=== PATIENT | male | born 1970 | race Caucasian/White ===

== ENCOUNTER 2016-11-08 18:54 | Inpatient (IN) | payer MEDICARE ==
--- NOTE | ~2016-11-08 | XA166 ---
[facility] A Service of [facility] & [facility] RADIOLOGY TEXT RESULTS PATIENT: LOUANN GOLDEN LOCATION: [facility] 576-01 : 70 UNIT #: [id number] AGE: [address]: Srinivasan Sidhu MD SEX: M ORDER DR: [id number] [facility] [address] [place], [place] [address] [id number] I MR#: [id number] Acc #: [id number] NAME: LOUANN GOLDEN : 1970 SEX: M STUDY DATE/TIME: 11/22/2016 14:57 UNIT: [facility] ROOM: [facility] STUDY DESCRIPTION: XA PICC Line Placement WO Port Attending Physician: Srinivasan Sidhu M.D. Ordering Physician: Srinivasan Sidhu M.D. Primary Care Physician: Primary Care Physician No MEDICAL IMAGING REPORT This report is preliminary unless electronic signature is present EXAM Right-sided PICC line placement INDICATION Need for IV access. The patient with bilateral pulmonary infiltrates diagnosed on November 13, 2016. PRE-PROCEDURE The procedure was explained to the patient and/or patient assisted sales representative including risks, benefits, potential complications and potential for alternative forms of treatment. Informed consent was obtained, and prior to initiating the procedure a formal timeout procedure was performed. PROCEDURE Using full standard sterile barrier technique, including caps, gowns, gloves, masks, as well as sterile skin preparation and standard sterile draping, the right arm was prepped and draped in the usual fashion, and real-time sterile ultrasound guidance was used to localize an arm vein and to confirm vessel patency. A hard copy ultrasound image was recorded. After local anesthesia with 1% Xylocaine, the vein was punctured using real-time sterile ultrasound guidance, and an 0.018 guidewire was advanced into the superior vena cava, using fluoroscopic guidance. A 4 Barbadian single-lumen PICC was then measured and deployed with the tip positioned in the superior vena cava. The position of the line was documented with a radiographic image. The line was secured in place with an adhesive dressing and an antibiotic patch was applied. Total fluoro time was 0.1 minutes. AK was 1 mGy. IMPRESSION Successful placement of a 4 Barbadian single-lumen PowerPICC via the right arm under ultrasound and fluoroscopic guidance. The tip of the PICC is in good position in the superior vena cava. [facility] A Service of [facility] & [facility] RADIOLOGY TEXT RESULTS PATIENT: LOUANN GOLDEN LOCATION: [facility] 576-01 : 70 UNIT #: [id number] AGE: [address]: Srinivasan Sidhu MD SEX: M ORDER DR: Dictated by... Johanna Chanel M.D. THIS IS AN ELECTRONICALLY VERIFIED REPORT Johanna Chanel M.D. at 11/23/2016 1:15 PM KRISTIAN/vince TD: 11/23/2016 08:31 JOB #: [id number] MEDICAL IMAGING REPORT Page 1 of 1 COPY
--- NOTE | ~2016-11-08 | CR72 ---
[facility] A Service of [facility] RADIOLOGY TEXT RESULTS PATIENT: LOUANN GOLDEN LOCATION: [address] : [birth year] UNIT #: [id number] AGE: [address]: Srinivasan Sidhu MD SEX: M ORDER DR: [id number] [place] [address] [place], [place] [address] [id number] I MR#: [id number] Acc #: [id number] NAME: LOUANN GOLDEN : 1970 SEX: M STUDY DATE/TIME: 11/13/2016 18:02 UNIT: [facility] ROOM: [facility] STUDY DESCRIPTION: CR Chest Single View Portable Attending Physician: Srinivasan Sidhu M.D. Ordering Physician: Jaime Rodgers M.D. Primary Care Physician: Primary Care Physician No MEDICAL IMAGING REPORT This report is preliminary unless electronic signature is present EXAM Portable chest, 11/13/16 HISTORY ET tube placement and central line placement COMPARISON STUDIES Earlier today. FINDINGS Right IJ central venous catheter tip projects over the SVC. Endotracheal tube tip in satisfactory position above the troy. The Dobbhoff tube tip projects over the stomach. No evidence for pneumothorax. Stable diffuse bilateral pulmonary infiltrates. IMPRESSION Right IJ central venous catheter tip projects over the mid SVC. Endotracheal tube tip in satisfactory position. No evidence for pneumothorax. Dictated by... Mat Lombardi M.D. THIS IS AN ELECTRONICALLY VERIFIED REPORT Mat Lombardi M.D. at 11/15/2016 7:26 AM ARS/catrachita TD: 11/14/2016 00:12 [facility] A Service [facility] RADIOLOGY TEXT RESULTS PATIENT: LOUANN GOLDEN LOCATION: [address] : [birth year] UNIT #: [id number] AGE: [address]: Srinivasan Sidhu MD SEX: M ORDER DR: JOB #: [id number] MEDICAL IMAGING REPORT Page 1 of 1 COPY
--- NOTE | ~2016-11-08 | EKG ---
PATIENT: LOUANN GOLDEN UNIT #: [id number] Ventricular Rate: 89 BPM Atrial Rate: 89 BPM P-R Interval: 144 ms QRS Duration: 76 ms Q-T Interval: 332 ms QTC Calculation(Bezet): 403 ms P [place]: 71 degrees Calculated R [place]: 56 degrees Calculated T [place]: 125 degrees Diagnosis Line: Normal sinus rhythm Diagnosis Line: Low voltage QRS Diagnosis Line: Septal infarct , age undetermined Diagnosis Line: Abnormal ECG Diagnosis Line: When compared with ECG of 08-NOV-2016 19:51, Diagnosis Line: Non-specific change in ST segment in Inferior Diagnosis Line: leads Diagnosis Line: Nonspecific T wave abnormality now evident in Diagnosis Line: Inferior leads Diagnosis Line: Nonspecific T wave abnormality, worse in Lateral Diagnosis Line: leads Diagnosis Line: QT has shortened Diagnosis Line: Confirmed by MIKE RAMIREZ MD ([id number]) on Diagnosis Line: 11/14/2016 1:29:32 PM INTERPRETING MD: JAMES MCKINNON
--- NOTE | ~2016-11-08 | CR127 ---
[facility] A Service of [facility] RADIOLOGY TEXT RESULTS PATIENT: LOUANN GOLDEN LOCATION: [place] [address] : 70 UNIT #: [id number] AGE: [address]: Kathi Nicholas MD SEX: M ORDER DR: [id number] [facility] [address] [facility]. [place], [place] [address] [id number] I MR#: [id number] Acc #: [id number] NAME: LOUANN GOLDEN : 1970 SEX: M STUDY DATE/TIME: 11/08/2016 20:45 UNIT: [facility] ROOM: [id number] STUDY DESCRIPTION: CR Foot Complete Min 3 View Rt Attending Physician: Kathi Nicholas M.D. Ordering Physician: Sj Arciniega M.D. Primary Care Physician: Primary Care Physician No MEDICAL IMAGING REPORT This report is preliminary unless electronic signature is present EXAM Right foot 3 views HISTORY Foot pain and redness for 8 months. Chronic wound on plantar foot. FINDINGS 3 views of the right foot demonstrate fairly extensive soft tissue gas along the lateral plantar margin of the mid and forefoot extending into the fourth and fifth digits, and soft tissue wound over the lateral margin of the forefoot at the level of the fifth MTP joint. Generalized demineralization. Mild degenerative changes at the first MTP joint. No bone destruction or fracture is identified. Soft tissue swelling over the dorsum of the foot. IMPRESSION 1. Fairly extensive soft tissue gas along the plantar margin of the lateral mid and forefoot and extending into the fourth and fifth digits suggesting gas-producing soft tissue infection. There is also a soft tissue defect over the lateral margin of the fifth MTP joint. 2. No definite bone destruction or fracture. Dictated by... Tomy Rush M.D. THIS IS AN ELECTRONICALLY VERIFIED REPORT Tomy Rush M.D. at 11/08/2016 11:32 PM NIKI/darwin TD: 11/08/2016 22:33 JOB #: [id number] [facility] A Service of [facility] & [facility] RADIOLOGY TEXT RESULTS PATIENT: LOUANN GOLDEN LOCATION: [facility] 477-01 : 70 UNIT #: [id number] AGE: [address]: Kathi Nicholas MD SEX: M ORDER DR: MEDICAL IMAGING REPORT Page 1 of 1 COPY
--- NOTE | ~2016-11-08 | CR72 ---
[facility] A Service of [facility] & [facility] RADIOLOGY TEXT RESULTS PATIENT: LOUANN GOLDEN LOCATION: [address] : [birth year] UNIT #: [id number] AGE: [address]: Srinivasan Sidhu MD SEX: M ORDER DR: [id number] [facility] [address] [facility] [facility] [place], [place] [address] [id number] I MR#: [id number] Acc #: [id number] NAME: LOUANN GOLDEN : 1970 SEX: M STUDY DATE/TIME: 11/15/2016 5:08 UNIT: [facility] ROOM: [facility] STUDY DESCRIPTION: CR Chest Single View Portable Attending Physician: Srinivasan Sidhu M.D. Ordering Physician: Pito Varghese M.D. Primary Care Physician: Primary Care Physician No MEDICAL IMAGING REPORT This report is preliminary unless electronic signature is present EXAM Portable chest INDICATION Respiratory failure for 7 days. Follow up endotracheal tube. FINDINGS This portable view of the chest is compared with 11/13/2016. The Dobbhoff tube tip is in the lower esophagus and should be advanced. Bilateral infiltrates which are most dense on the right side and particularly in the right upper lobe are improved as compared with 11/13. The endotracheal tube and central venous catheter are in good position. I have discussed the results with the patient's nurse in the CCU. Dictated by... Juaquin Kowalski M.D. THIS IS AN ELECTRONICALLY VERIFIED REPORT Juaquin Kowalski M.D. at 11/15/2016 8:41 AM HINA/harvey TD: 11/15/2016 07:47 JOB #: [id number] MEDICAL IMAGING REPORT Page 1 of 1 COPY
--- NOTE | ~2016-11-08 | CO ---
Unit #: [id number] #: [id number] Patient: LOUANN GOLDEN [id number] [address] [address] [id number] I MR#: [id number] NAME: LOUANN GOLDEN ROOM: 576 Age: 46 Sex: M Admission Date: 11/08/2016 : 1970 Attending Physician: Srinivasan Sidhu M.D. Consultation Date: 11/21/2016 CONSULTATION REPORT REASON FOR CONSULTATION Followup. DISCUSSION Mr. Louann Joseph is a 46-year-old male, seen in room 576, bed 1 on 11/21/2016. The patient is keeping his head covered; mood, sad, depressed, flat, anxious. The patient was scheduled to have a surgery on his foot for gangrene. The patient had flat affect, sad, dysphoric, but denied any thoughts of harming self or others. Denied any psychotic symptom, but anxious and nervous. The patient's vital signs; temperature 98.0, pulse 86, respirations 18, blood pressure 142/65, oxygen saturation 95%. REVIEW OF SYSTEMS A complete review of systems is unremarkable except as mentioned above. MENTAL STATUS EXAMINATION Vital signs; please see above. General appearance; the patient dressed casually in hospital attire, withdrawn, isolative, flat, sad and dysphoric mood. Attention span and concentration, fair. Speech, slow. Oriented in self. Mood and affect, labile. Thought process, circumstantial. Thought content; guarded, but denied any thoughts of harming self or others or any hallucination. Recent and remote memory, fair. Language, fair. Fund of knowledge, fair to slightly impaired. Insight and judgment, fair to slightly impaired. DIAGNOSES Psychiatric: Major depressive disorder, recurrent, severe, F33.2; anxiety disorder, not otherwise specified, F40.01. ASSESSMENT AND PLAN 1. Supportive psychotherapy and psychoeducation provided to the patient. 2. Educated about benefits and side effects of medication and course and prognosis of illness. 3. Advised to continue with current combination of medication. If needed, consider further adjustment of medication. Please feel free to call if any question, telephone #[phone]. Dictated by... Tay Prince M.D. MATTHEW/ricky Unit #: [id number] #: [id number] Patient: LOUANN GOLDEN TD: 11/21/2016 19:43 JOB #: [id number] CONSULTATION REPORT Page 1 of 1 X Tay Prince MD CONSULTATION REPORT
--- NOTE | ~2016-11-08 | EKG ---
PATIENT: LOUANN GOLDEN UNIT #: [id number] Ventricular Rate: 94 BPM Atrial Rate: 94 BPM P-R Interval: 144 ms QRS Duration: 84 ms Q-T Interval: 366 ms QTC Calculation(Bezet): 457 ms P [place]: 80 degrees Calculated R [place]: 70 degrees Calculated T [place]: 91 degrees Diagnosis Line: Normal sinus rhythm Diagnosis Line: Normal ECG Diagnosis Line: No previous ECGs available Diagnosis Line: Confirmed by JOVANI GARY MD ([id number]) on 11/09/2016 Diagnosis Line: 10:03:20 AM INTERPRETING MD: COOKIE MCKINNON
--- NOTE | ~2016-11-08 | FU ---
[facility] DATE: 11/13/16 Patient: LOUANN GOLDEN Physician: PRINCESS Address: [address] [place] [address] [address] Room/Bed: [address] [place] [address], Zip: [place] [address] Admit Date: 11/08/16 Date of : [birth year] Height: 6 1 Weight: 134 61.23 NUTRITION MONITORING/FOLLOW-UP: Reason: Nutrition follow-up Admitting Dx: 45 y/o male admitted with R foot gangrene and uncontrolled DM Anthropometrics: Ht: 73", Wt: 61.2 kg (134 lbs), BMI: 17.7 (underweight), no updated weight available since 11/09 11/12 Labs: Na 133, K+ 3.3, Glucose 310, POC 44-210, A1C 14.7 (11/08), Phos 2.2 (11/08) Meds: Synthroid, Reglan, Levemir, Novolog (low SSI), bowel regimen, Phenergan/Zofran, NSIV @ 80 ml/hr GI: Last BM 11/13 (diarrhea), denies N/V at this time Skin: Pressure ulcers coccyx/buttocks (stage not documented) Scattered abrasions/wounds BUE/BLE Closed surgical incision R foot (s/p toe amputation) Intact abrasions ARIADNA arms Estimated Nutrition Needs: Increased needs due to wound healing requirements and low BMI Assessment: Chart reviewed, events noted. POD #4 open R foot transmetatarsal amputation, pain well controlled at this time. Patient is tolerating consistent carb diet with Glucerna ordered TID. For breakfast this AM consumed: 100% yogurt, 100% chocolate Glucerna, 50% banana. Patient states Glucerna is "ok," has no flavor preference, thinks he can only drink BID. States he has lost a total of approx. 130 lbs in the past 2 years due to diabetes, weight loss unintentional. Staff is questoning homeless status, social welfare administrator to confirm whether patient has home or not. Appears not well kept and thin with skin issues as noted above. Patient does have generalized weakness. RD educated on protein-rich foods and encouraged patient to continue Glucerna shakes and eat most of 3 meals per day, snacks as needed. Patient agreed. He also states he "usually" has insulin at home, however his diet/insulin compliance is questionable, A1C level 14.7. Patient is not wishing to receive diet education at this time, however I encouraged dietary compliance to help control blood sugars while meeting increased protein needs for wound healing. Patient agreed. See nutrition goals, diagnoses and recs as stated below. Of note, the patient will require further foot debridement and possible amputation. Rick eval placed. Dx: 1) Underweight r/t unknown etiology AEB BMI 17.7 - ACTIVE 2) Unintentional weight loss r/t "diabetes" AEB patient report of 49% body weight loss in 2 years (130 lb loss), 7 points malnutrition risk score, RD consult - ACTIVE [facility] DATE: 11/13/16 Patient: LOUANN GOLDEN Physician: PRINCESS Address: [address] [place] [address] 64 Room/Bed: [address] [place] [address], Zip: [place] [address] Admit Date: 11/08/16 Date of : [birth year] Height: 6 1 Weight: 134 61.23 3) Increased nutrient needs r/t wound healing requirements AEB dx, multiple open sores/abrasions, pressure ulcers, recent toe amputation - ACTIVE 4) Altered nutrition related lab values r/t uncontrolled DM AEB A1C 14.7, clinical dx - ACTIVE Intervention: High protein foods education Monitoring, Evaluation and Goals: 1. Tolerance of diet advancement - MET 2. Oral intake > 75% of meals - IN PROGRESS 3. Gradual weight gain - UNMEASURED SINCE 11/09 4. Improvement in labs (glucose < 200 mg dL, reduce A1C, lytes WNL) - IN PROGRESS 5. Promote wound healing - IN PROGRESS New nutrition goals: 1. Oral intake > 75% of meals. 2. 100% supplement intake BID. 3. Gradual weight gain. 4. Improvement in labs (glucose < 200 mg dL, reduce A1C, lytes WNL). 5. Promote wound healing. Monitor: Per protocol, criteria to determine if above goals met Recommendations: 1. Continue consistent carb diet, suggest 75g restriction. Appreciate staff to encourage adequate oral intake, especially of protein-rich foods such as meat, beans, dairy and Glucerna shakes. Patient was educated on his increased protein needs and appropriate protein-rich foods. Encourage patient to drink Glucerna shakes 2-3 times daily, he has no flavor preference. 2. Replace lytes prn. Hold bowel regimen with diarrhea. 3. Please obtain updated weight for monitoring purposes, as the patient is underweight. 4. Encourage insulin compliance prior to discharge, social welfare administrator to intervene as necessary. Optimze insulin regimen to promote adequate blood glucose control. 5. Provide wound care prn. Consider adding a daily MVI with minerals + 500 mg Vitamin C BID + 220 mg Zinc x 10 days to further promote wound healing. 6. Encourage smoking cessation. [facility] DATE: 11/13/16 Patient: LOUANN GOLDEN Physician: PRINCESS Address: [address] [place] [address] Room/Bed: [address] [place] [address], Zip: [place] [address] Admit Date: 11/08/16 Date of : [birth year] Height: 6 1 Weight: 134 61.23 Status: Moderate nutrition risk Respectfully, Audrey Estrada RD, LD [facility] cc: client file
--- NOTE | ~2016-11-08 | CT16 ---
[facility] A Service of [facility] & [facility] RADIOLOGY TEXT RESULTS PATIENT: LOUANN GOLDEN LOCATION: [address] : 70 UNIT #: [id number] AGE: [address]: Srinivasan Sidhu MD SEX: M ORDER DR: [id number] [facility] [address] [place], [place] [address] [id number] I MR#: [id number] Acc #: [id number] NAME: LOUANN GOLDEN : 1970 SEX: M STUDY DATE/TIME: 11/13/2016 13:47 UNIT: [facility] ROOM: [facility] STUDY DESCRIPTION: CT Angio Chest for PE Attending Physician: Srinivasan Sidhu M.D. Ordering Physician: Srinivasan Sidhu M.D. Primary Care Physician: Primary Care Physician No MEDICAL IMAGING REPORT This report is preliminary unless electronic signature is present EXAM CT angiogram of the chest for pulmonary embolism, 11/13/2016 13:47 hours HISTORY 46-year-old man with new onset shortness of air and decrease oxygen saturation levels with rapid heart response. Decreased blood sugar. COMPARISON Abnormal chest film 11/13/2016 at 12:56 [address] TE[address]QUE Dynamic helical CT angiographic images were obtained from the thoracic inlet through the adrenal glands. 3-D sagittal and coronal reconstructions were performed. Contrast was Isovue-370, 80 mL IV. Total exam DLP 802 mGy-cm. This CT exam was performed with one or more of the following radiation dose reduction techniques: automatic exposure control, adjustment of mA and/or kV according to patient size, and iterative reconstruction. FINDINGS Images through the thoracic inlet demonstrate no thyroid mass. There is excellent opacification of the pulmonary arteries which are normal in caliber. There are no filling defects to suggest the presence of pulmonary emboli. The aorta is also well opacified without dissection. The ascending aorta measures 3.5 cm consistent with mild ectasia. There is no significant pericardial fluid. The patient has moderate dependent bilateral pleural effusions and diffuse ascites in the abdomen. The lung window images are markedly abnormal similar to the earlier chest film with diffuse bilateral ground-glass and airspace change more confluent in the right upper lobe than left upper lobe with patchy involvement in the right middle lobe, lingula and both lower lobes. The findings favor the presence of an asymmetric edema although diffuse STS. [facility] A Service of [facility] & [facility] RADIOLOGY TEXT RESULTS PATIENT: LOUANN GOLDEN LOCATION: [address] : [birth year] UNIT #: [id number] AGE: [address]: Srinivasan Sidhu MD SEX: M ORDER DR: overwhelming pneumonia could have this appearance. The liver and spleen appear normal. There is diffuse upper abdominal ascites. No definite liver lesion. No adrenal lesion. The upper poles of the kidneys enhance normally. IMPRESSION 1. No evidence of pulmonary embolism. 2. Mild ectasia of the ascending aorta measuring 3.5 cm with no dissection. 3. There is diffuse airspace change in the right upper lobe and patchy ground-glass change and interstitial change in the left upper lobe, right middle lobe, lingula and patchy involvement of the lower lobes with moderate dependent bilateral effusions. These parenchymal changes favor the presence of asymmetric edema over multifocal pneumonia. 4. There are dependent moderate effusions with diffuse ascites seen in the upper abdomen. No definite liver or splenic lesion is seen. 5. The bones appear normal. 6. The upper poles of both kidneys enhance normally. There is no adrenal lesion. STAT * RESULT Dictated by... Key Juarez M.D. THIS IS AN ELECTRONICALLY VERIFIED REPORT Key Juarez M.D. at 11/14/2016 9:27 AM Kofi TD: 11/13/2016 14:33 JOB #: [id number] MEDICAL IMAGING REPORT Page 1 of 1 COPY
--- NOTE | ~2016-11-08 | FU ---
[facility] Nutrition Therapy DATE: 11/14/16 Patient: LOUANN GOLDEN Physician: PRINCESS Address: [address] Room/Bed: [address], Zip: [place] [address] Admit Date: 11/08/16 Date of : [birth year] Height: 6 1 Weight: 156 71 NUTRITION MONITORING/FOLLOW-UP: Reason: Enteral nutrition consult and follow up Anthropometrics: Ht: 73" Adm wt: 61.2 kg BMI: 17.7 IBW: 83.6 kg, 73% IBW Wt 11/14: 71 kg- likely inaccurate bedscale weight Labs: Gluc 56 Ca++ 7.4 Alb 1.4 AST 47 Accuchecks 63-68 Alk Phos 411 Meds: Senokot, bisacodyl, versed, fentanyl, D5%, levophed, novolog, versed, levaquin (IV), solu-medrol, reglan, lipitor, levothroid (will be via DHT per RN ), MOM, phenergan, MgSO4, KCl I&O's: 2380/3250, last BM 11/13 Skin: Pressure ulcers coccyx/ buttocks (stage 2-3 expected per RN report) Scattered abrasions/ wounds BUE/ BLE Closed surgical incision right foot (s/p toe amputation) Intact abrasions BL arms Edema: Generalized- trunk Estimated Nutrition Needs: 3464-7281 kcals (30-35 kcals/kg) 92-110 grams protein (1.5-1.8 grams protein) Assessment: Chart reviewed, events noted. Pt is POD#5 open right foot transmetatarsal amputation. Pt was transfered to the ICU (previously on 4C) and now intubated. RD followed up with the pt yesterday, when he was still taking nutrition PO. Per RD assessment from yesterday, the pt consumed 50-100% of his breakfast with 100% of his glucerna shake. Pt reported significant weight loss (130# in 2 years) due to DM. Skin breakdown and low body weight (noted above) causing increased kcal and protein needs. Of note, the refused DM diet education yesterday, but RD discussed high protein foods and he was agreeable to increasing kcal/ protein intake. RD consulted for enteral nutrition now that the pt is intubated. Enteral nutrition started with Glucerna 1.5 @ 20 mL/hr. Please see recommendations below for goal rate. Dx: 1) Underweight RT unknown etiology AEB BMI 17.7, 73% IBW- ACTIVE 2) Unintentional weight loss RT diabetes AEB patient report of 49% body weight loss ub 2 years (130# weight loss), 7 points malnutrition risk score, RD consult- ACTIVE 3) Increased nutrient needs RT wound healing requirements AEB Dx, skin breakdown, recent [facility] Nutrition Therapy DATE: 11/14/16 Patient: LOUANN CHANTEL Physician: PRINCESS Address: [address] [place] [address] 64 Room/Bed: [address], Zip: [place] [address] Admit Date: 11/08/16 Date of : [birth year] Height: 6 1 Weight: 156 71 toe amputation- ACTIVE 4) Altered nutrition related lab values RT uncontrolled DM AEB A1C 14.7, clinical Dx- ACTIVE Intervention: 1. Enteral nutrition Monitoring, Evaluation and Goals: 1. Tolerance of diet advancement- NO LONGER APPROPRIATE (INTUBATED) 2. Oral intake- NO LONGER APPROPRIATE 3. Gradual weight gain- IN PROGRESS 4. Improvement in labs (gluc <200, reduce A1C, lytes WNL)- IN PROGRESS 5. Promote wound healing- IN PROGRESS New goals: 1. Enteral nutrition; tolerate >80% goal volume x 24 hrs Recommendations: 1. Once medically feasible, increase Glucerna 1.5 by 10 mL q 6 hrs as tolerated to goal of 60 mL/hr (x 22 hrs) + 30 mL Prostat once daily to provide: 2220 kcals (including kcals from Joey + Prostat)/ 99 grams protein/ 1003 mL free H20 *PLEASE NOTE: ENTERAL NUTRITION CALCULATED TO RUN FOR TOTAL OF 22 HRS, IT WILL NEED TO BE HELD FOR ONE HOUR BEFORE AND ONE HOUR FOLLOWING SYNTHROID ADMINISTRATION* 2. In order to promote wound healing, add the following to the pt's enteral regimen: -Joey BID -MVI with minerals -500 mg vitamin C BID -220 mg zinc x 10 days 3. If the pt is extubated, recommend diet advancement per TRANSMITTER [employer] IN [employer]GE + CC/ high protein and Glucerna supplements TID. 4. Please obtain accurate weight for monitoring, as the pt is underweight. Status: Pt is at moderate-severe nutritional risk. RD will continue to follow per protocol. Respectfully, [facility] Nutrition Therapy DATE: 11/14/16 Patient: LOUANN GOLDEN Physician: PRINCESS Address: [address] [place] [address] 64 Room/Bed: [address], Zip: [place] [address] Admit Date: 11/08/16 Date of : [birth year] Height: 6 1 Weight: [address], LD Food and Nutritional Services [facility] cc: client file
--- NOTE | ~2016-11-08 | OR ---
Unit #: [id number] #: [id number] Patient: LOUANN GOLDEN [id number] [address] [address] [id number] I MR#: [id number] NAME: LOUANN GOLDEN ROOM: [facility] Date of Procedure: 11/13/2016 Admission Date: 11/08/2016 Surgeon: Jaime Rodgers M.D. : 1970 Attending Physician: Srinivasan Sidhu M.D. Primary Care Physician: Primary Care Physician No PROCEDURE OPERATIVE NOTE PROCEDURE Bronchoscopy. INDICATION Pneumonia. PREPROCEDURE DIAGNOSIS Pneumonia. POSTPROCEDURE DIAGNOSIS Pneumonia. DETAILS OF PROCEDURE After placing patient in proper position, bronchoscope introduced with an endotracheal tube which was sitting well above the troy. We examined the right upper, right middle, right lower lobe, left upper lobe, lingula, left upper lobe. No endobronchial lesion was found. There were thick mucoid secretions in both lungs which were therapeutically suctioned. Then we did a bronchioalveolar lavage in the right middle and right lower lobe area with 70 mL saline in and 40 mL retrieved. The patient tolerated the procedure very well. No complications happened. Dictated by... Jhon Chowdary/chinmay TD: 11/13/2016 20:15 JOB #: [id number] Unit #: [id number] #: [id number] Patient: LOUANN GOLDEN PROCEDURE OPERATIVE NOTE Page 1 of 1 X Jaime Rodgers MD X PROCEDURE OPERATIVE NOTE
--- NOTE | ~2016-11-08 | DS ---
Unit #: [id number] #: [id number] Patient: LOUANN GOLDEN [id number] [address] [place], [place] [address] [id number] I MR#: [id number] NAME: LOUANN GOLDEN ROOM: 576 Age: 46 Sex: M Admission Date: 11/08/2016 : 1970 Discharge Date: 11/22/2016 Attending Physician: Srinivasan Sidhu M.D. Primary Care Physician: Rola Primary Care Physician DISCHARGE SUMMARY CONSULTANTS 1. Dr. Stapleton. 2. Dr. Rodgers. PROCEDURES Right foot transmetatarsal amputation and status post wound closure. Two procedures were done. He is currently with a wound VAC. ADMITTING DIAGNOSIS Right foot gangrene. FURTHER DIAGNOSES 1. Diabetes mellitus type 2, poorly controlled with initial presentation of diabetic ketoacidosis. 2. Acute hypoxic respiratory failure, possibly aspiration pneumonia. HISTORY OF PRESENT ILLNESS The patient is a 45-year-old man with a past medical history of diabetes for eight years, noncompliant with medication. Presented with poorly-controlled sugars and foul-smelling discharge from the right foot. HOSPITAL COURSE In the initial evaluation, he was noted to have right foot wet gangrene. He was seen by orthopedic surgery. He had a MRI of the foot. Later, he was taken to the operating room. Had a transmetatarsal amputation. He was started on broad-spectrum antimicrobials. Wound cultures came back as Strep agalactiae. In the hospital course, he also developed acute hypoxemic respiratory failure. He was taken down to the ICU. Slowly, his breathing stabilized. Thought to have an aspiration pneumonia. His antimicrobials were changed to Zosyn. Slowly, he is doing better. Yesterday, he was taken to the operating room. Again, had a wound closure. Now, he has a wound VAC. I spoke with Dr. Stapleton today. He recommended the wound VAC to be changed every three weeks and to follow with orthopedic surgery in two to three weeks. He is doing clinically better and he will be transferred to the rehab today. PHYSICAL EXAMINATION On the day of the discharge, his physical examination: VITAL SIGNS: Temperature 97.8, pulse rate 82, respirations 17, blood pressure 109/69. GENERAL: Patient is alert and oriented x3, lying in the bed, no acute distress, thin. HEENT: Normocephalic and atraumatic. No icterus. PERRLA. Extraocular muscles intact. Unit #: [id number] #: [id number] Patient: LOUANN GOLDEN NECK: Supple. No JVD. HEART: S1, S2. Regular rate and rhythm. CHEST: Bilateral equal air entry. Minimal rhonchi. ABDOMEN: Soft, nontender. EXTREMITIES: Right foot in dressing. DISCHARGE MEDICATIONS 1. Rocephin 2 g IV daily until December 06, 2016. 2. Prednisone tapering dose. 3. Neurontin 400 mg twice a day. 4. Prozac 20 mg daily. 5. Trazodone 100 mg at bedtime. 6. Venlafaxine 75 mg daily. 7. Lomotil 5 mg daily p.r.n. for diarrhea. 8. Zofran 4 mg q.6 p.r.n. nausea and vomiting. 9. Benadryl 25 mg q.6 p.r.n. for itching. 10. Vistaril 25 mg three times a day. 11. Ambien 5 mg at bedtime. 12. Bisacodyl 10 mg daily p.r.n. constipation. 13. Milk of Magnesia 30 mL p.r.n. constipation. 14. Senokot 8.6 mg p.o. daily. 15. Lipitor 10 mg at bedtime. 16. Levemir 10 units at bedtime. 17. NovoLog insulin sliding scale. 18. Oxycodone 5/325 one tab q.4-6 p.r.n. for pain. 19. Suboxone 8/2 mg one tablet sublingual three times a day. 20. Protonix 40 mg daily. 21. Synthroid 75 mcg daily. He needs weekly twice CBC, BMP and weekly twice wound VAC changes. Total time spent in his care, 35 minutes. I spoke with the case fitter and she is arranging for the transportation. Dictated by..Lara Sidhu M.D. BASSAM/waqas TD: 11/22/2016 15:14 JOB #: [id number] DISCHARGE SUMMARY Page 1 of 1 X X DISCHARGE SUMMARY
--- NOTE | ~2016-11-08 | A ---
[facility] Nutrition Therapy DATE: 11/09/16 Patient: LOUANN GOLDEN Physician: PRINCESS Address: [facility] Room/Bed: [address] [place] [address], Zip: [place] [address] Admit Date: 11/08/16 Date of : [birth year] Height: 6 1 Weight: 134 61.23 NUTRITIONAL ASSESSMENT: REASON: Seen due to diagnosis, low BMI, 7 points malnutrition risk score re: pressure ulcer/eating poorly/60 lb weight loss + MD consult x 2 re: "nutrition" and "dietary evaluation" Admitting Dx: 45 y/o male admitted with R foot gangrene and uncontrolled DM PMH: IDDM x 8 years, peripheral neuropathy, thyroid disease, HLD, 1-1 1/2 ppd smoker, hx opiate addiction on Suboxone Anthropometrics: Ht: 73", Wt: 61.2 kg (134 lbs), BMI: 17.7 (underweight) No past weights available Labs: K+ 2.9, Phos 2.2 (11/08), Glucose 246, POC 81-169, A1C 14.7 Meds: Zofran prn, Nacl, Kcl, Abx, Novolog (medium SSI), Levemir I/O & Bowel function: Last BM 11/09 (diarrhea) Skin Integrity: Multiple open sores arms/hands, redness/gangrene R foot, pressure ulcers coccyx/buttocks (stage not documented) Estimated Nutrition Needs: Increased protein needs r/t wound healing, low BMI Assessment: Chart reviewed, events noted. See admitting dx, PMH and reason for RD assessment as stated above. Patient lives alone, reported 60 lb weight loss is an unknown time frame during malnutrition risk screen + eating poorly. Pressure ulcer stages not documented. Patient is clinically underweight if current weight is accurate. MD noted in H&P patient "looks quite cachectic on exam," and I agree based on my brief, limited viewing of the patient. I am unable to interview him at this time- tried visiting him @ 0940 hrs today and he was sleeping, did not wake to verbal cues. Revisited his room @ 1254 hrs and the curtain was pulled, nursing in room. Patient is NPO for possible surgery today, ortho surgeon to see today who may be in the patient's room currently. The patient likely qualifies for some degree of protein calorie malnutrition, however I am unable to definitively diagnose at this time as I am unable to obtain his weight/oral intake history. But based on what he reported during the malnutrition screen he is likely severely malnourished and has increased protein needs related to wound healing, weight loss, underweight status. Will write recommendations and chart once oral diet is appropriate, will follow-up to obtain weight history and further nutritional needs. Dx: [facility] Nutrition Therapy DATE: 11/09/16 Patient: LOUANN GOLDEN Physician: PRINCESS Address: [address] [place] [address] [address] Room/Bed: [address] [place] [address], Zip: [place] [address] Admit Date: 11/08/16 Date of : [birth year] Height: 6 1 Weight: 134 61.23 1) Underweight r/t unknown etilogy AEB BMI 17.7. 2) Unintentional weight loss r/t unknown etiology AEB 7 points malnutrition risk score, MD consult. 3) Increased nutrient needs r/t wound healing requirements AEB gangrene, multiple open sores, pressure ulcers. 4) Altered nutrition related lab values r/t uncontrolled DM AEB A1C 14.7, clinical dx. Intervention: Regular diet + Glucerna TID, wound care, lyte replacement, diet ed? Monitoring, Evaluation and Goals: 1. Tolerance of diet advancement with oral intake > 75% of meals. 2. Gradual weight gain towards a healthy BMI range. 3. Improvement in labs; glucose < 200 mg dL, lower A1C, lytes WNL. 4. Promote wound healing. Monitor: Per protocol, criteria to determine if above goals met Recommendations: 1. Replace lytes prn (K+, Phos low). 2. Once medically feasible advance oral diet to regular and order Glucerna shakes TID to increase oral kcal/protein intake, as the patient has increased nutrient needs related to weight loss, underweight status and wound healing. Glucerna is available in chocolate, vanilla and strawberry. 3. Optimize insulin regimen to promote adequate blood glucose control and encourage at-home compliance with appropriate education as needed. RD will follow-up to determine diet education needs. 4. Encourage smoking cessation. 5. Provide wound care prn. 6. Please weigh q 3 days for monitoring purposes. 7. If the patient continues to have poor oral intake suggest placing a DHT and starting enteral nutrition. Please consult RD if recs are needed. RD will follow hospital course Moderate nutrition risk [facility] Nutrition Therapy DATE: 11/09/16 Patient: LOUANN GOLDEN Physician: PRINCESS Address: [address] [place] [address] [address] Room/Bed: [address] [place] [address], Zip: [place] [address] Admit Date: 11/08/16 Date of : [birth year] Height: 6 1 Weight: 134 61.23 Respectfully, Audrey Estrada RD, LD Food and Nutritional Services [facility] cc: client file
--- NOTE | ~2016-11-08 | CR72 ---
[facility] A Service of [facility] RADIOLOGY TEXT RESULTS PATIENT: LOUANN GOLDEN [id number] : [birth year] UNIT #: [id number] AGE: [address]: Srinivasan Sidhu MD SEX: M ORDER DR: [id number] [facility] [address] [place], [place] [address] [id number] I MR#: [id number] #: [id number] NAME: LOUANN GOLDEN : 1970 SEX: M STUDY DATE/TIME: 11/14/2016 17:34 UNIT: [facility] ROOM: [facility] STUDY DESCRIPTION: CR Chest Single View Portable Attending Physician: Srinivasan Sidhu M.D. Ordering Physician: Srinivasan Sidhu M.D. Primary Care Physician: Primary Care Physician No MEDICAL IMAGING REPORT This report is preliminary unless electronic signature is present EXAM KUB HISTORY Abdominal distension for the past day COMPARISON 11/13/2016 TECHNIQUE Flat and upright views of the abdomen were obtained. FINDINGS The Dobbhoff tube tip is right near the gastroesophageal junction and has pulled out since the previous exam yesterday. It should be advanced 10-15 cm for better positioning in the mid stomach. Distended small and large bowel loops are again seen and not significantly changed. No free air is noted. IMPRESSION Moderately distended small and large bowel loops have not changed significantly since previous examination. The Dobbhoff tube has pulled back and the tip is now right of the gastroesophageal junction and should be advanced for better positioning. STAT * RESULT Dictated by... [facility] A Service [facility] RADIOLOGY TEXT RESULTS PATIENT: LOUANN GOLDEN [id number] : [birth year] UNIT #: [id number] AGE: [address]: Srinivasan Sidhu MD SEX: M ORDER DR: Jhon Brown/gómez TD: 11/14/2016 18:36 JOB #: [id number] MEDICAL IMAGING REPORT Page 1 of 1
--- NOTE | ~2016-11-08 | CR72 ---
[facility] A Service of [facility] RADIOLOGY TEXT RESULTS PATIENT: LOUANN GOLDEN LOCATION: [facility] [id number] : [birth year] UNIT #: [id number] AGE: [address]: Kathi Nicholas MD SEX: M ORDER DR: [id number] [facility] [address] [place], [place] [address] [id number] I MR#: [id number] Acc #: [id number] NAME: LOUANN GOLDEN : 1970 SEX: M STUDY DATE/TIME: 11/08/2016 20:12 UNIT: [facility] ROOM: 23477 STUDY DESCRIPTION: CR Chest Single View Portable Attending Physician: Kathi Nicholas M.D. Ordering Physician: Sj Arciniega M.D. Primary Care Physician: Primary Care Physician No MEDICAL IMAGING REPORT This report is preliminary unless electronic signature is present EXAM Portable chest, 11/08/2016 HISTORY Shortness of air for 8 months. COMPARISON None. FINDINGS Frontal chest demonstrates clear lungs. No pleural effusion or pneumothorax. Heart size and mediastinum are normal. Pulmonary vasculature normal. IMPRESSION No acute cardiopulmonary findings. Dictated by... Sadi Ricks M.D. THIS IS AN ELECTRONICALLY VERIFIED REPORT Sadi Ricks M.D. at 11/08/2016 10:55 PM Rupa TD: 11/08/2016 22:25 JOB #: [id number] MEDICAL IMAGING REPORT Page 1 of 1 COPY
--- NOTE | ~2016-11-08 | CO ---
Unit #: [id number] #: [id number] Patient: LOUANN GOLDEN [id number] [address] [address] [id number] I MR#: [id number] NAME: LOUANN GOLDEN ROOM: [facility]3 Age: 46 Sex: M Admission Date: 11/08/2016 : 1970 Attending Physician: Srinivasan Sidhu M.D. CONSULTATION REPORT REASON FOR CONSULTATION Respiratory failure. CHIEF COMPLAINT Shortness of breath. HISTORY OF PRESENT ILLNESS A 45-year-old male presented with the complaint of right foot wound and underwent amputation of the toes for uncontrolled diabetes. He was started on antibiotics currently. He has been admitted since November 08 and transferred to intensive care unit this morning for respiratory failure. A chest x-ray and a CT showed bilateral infiltrates consistent with bilateral pneumonia and severe ARDS. Patient has been requiring 100% FIO2 with saturations in the low 90s short of breath. REVIEW OF SYSTEMS Positive for pallor. No edema, no cyanosis, no jaundice. The rest is per History of Present Illness. PAST MEDICAL HISTORY 1. Diabetes mellitus. 2. Likely COPD. 3. Extensive smoker of one and a half packs per day. 4. Depression. 5. Thyroid disease. 6. Dyslipidemia. ALLERGIES None. MEDICATIONS As per MAR and have been reviewed. PHYSICAL EXAMINATION VITAL SIGNS: Temperature is currently 99, respirations 24, and blood pressure is 107/71. NEUROLOGICAL: Awake, alert, oriented, and following commands. CARDIOVASCULAR: S1 plus S2. RESPIRATORY: Bilateral air entry, bilateral mild rhonchi. GASTROINTESTINAL: Nontender and soft. Bowel sounds positive. EXTREMITIES: Positive edema. SKIN: No rashes, no ulcers. LYMPHATICS: No lymphadenopathy. Unit #: [id number] #: [id number] Patient: LOUANN GOLDEN DIAGNOSTIC STUDIES LABORATORY: Reviewed. IMAGING: Reviewed. ASSESSMENT 1. Acute respiratory failure, possible aspiration pneumonia. 2. Hospital-acquired pneumonia. 3. Severe acute respiratory distress syndrome. 4. Diabetes mellitus. 5. Likely history of chronic obstructive pulmonary disease. 6. Extensive smoker. 7. Chronic pain. PLAN Go ahead and intubate the patient. Patient is deciding about (1) bronchoscopy. Broad spectrum IV antibiotic. Will add IV steroid. Control his sugar aggressively. Patient will be closely monitored. Please see orders for detailed plans. Thank you very much for this consultation. We will continue to follow. Dictated by... Jhon Chowdary TD: 11/13/2016 19:55 JOB #: [id number] CONSULTATION REPORT Page 1 of 1 X Jaime Rodgers MD X CONSULTATION REPORT
--- NOTE | ~2016-11-08 | CR72 ---
[facility] A Service of [facility] RADIOLOGY TEXT RESULTS PATIENT: LOUANN GOLDEN [facility] 576-01 : [birth year] UNIT #: [id number] AGE: [address]: Srinivasan Sidhu MD SEX: M ORDER DR: [id number] [facility] [address] [place], [place] [address] [id number] I MR#: [id number] Acc #: [id number] NAME: LOUANN GOLDEN : 1970 SEX: M STUDY DATE/TIME: 11/18/2016 8:09 [facility] ROOM: [facility] STUDY DESCRIPTION: CR Chest Single View Portable Attending Physician: Srinivasan Sidhu M.D. Ordering Physician: Jaime Rodgers M.D. Primary Care Physician: No Primary Care Physician MEDICAL IMAGING REPORT This report is preliminary unless electronic signature is present EXAM Portable chest, 11/18/2016. HISTORY 46-year-old male with shortness of air beginning today. COMPARISON Chest, 11/16/2016. FINDINGS Frontal chest demonstrates stable right IJ central venous catheter. No visible pneumothorax. No interval improvement in patchy diffuse bilateral pulmonary infiltrates. Heart size and mediastinum are stable. IMPRESSION No interval change in patchy diffuse bilateral pulmonary infiltrates. Dictated by... Sadi Ricks M.D. THIS IS AN ELECTRONICALLY VERIFIED REPORT Sadi Ricks M.D. at 11/19/2016 6:20 AM JANETT/rajat TD: 11/18/2016 09:40 JOB #: [id number] MEDICAL IMAGING REPORT Page 1 of 1 COPY
--- NOTE | ~2016-11-08 | OR ---
Unit #: [id number] #: [id number] Patient: LOUANN GOLDEN [id number] [address] [place], [place] [address] [id number] I MR#: [id number] NAME: LOUANN GOLDEN ROOM: 576 Date of Procedure: 11/21/2016 Admission Date: 11/08/2016 Surgeon: Jacy Stapleton M.D. : 1970 Attending Physician: Srinivasan Sidhu M.D. OPERATIVE REPORT PREOPERATIVE DIAGNOSIS Open right foot transmetatarsal amputation measuring 12 x 8 cm. POSTOPERATIVE DIAGNOSIS Open right foot transmetatarsal amputation measuring 12 x 8 cm. PROCEDURES PERFORMED 1. Right foot wound debridement and partial closure (69979). 2. Right foot wound VAC application to defect measuring 8 cm x 5.5 cm ([id number]). FIREARMS INSTRUCTOR Katina. ANESTHESIA General. INDICATIONS FOR SURGERY This is a 46-year-old poorly controlled diabetic with severe right foot neuropathy, who was admitted with sepsis 2 weeks ago. He underwent open right foot transmetatarsal amputation 12 days ago. His postoperative course was complicated by pneumonia, requiring intensive care unit placement. The patient is now to undergo attempted partial wound closure of his foot wound. DESCRIPTION OF PROCEDURE The patient was taken to the operating room and placed in supine position. General anesthetic was induced. The right foot was identified as the correct operative extremity during the time-out procedure. The IV antibiotic protocol was not followed since he was on preoperative IV antibiotics. The right foot was prepped and draped in usual sterile fashion. A tourniquet was not utilized. There was a necrotic plantar skin flap, which was totally excised. All necrotic subcutaneous tissue and the skin were excised. The metatarsals were shortened an additional 1 cm with the microsagittal saw. The wounds were then copiously irrigated. The dorsal skin flap was then repaired to the plantar flap both medially and laterally, but still left a 5.5 cm wide x 8 cm long plantar skin defect in the midfoot and forefoot. We were able to gain closure of skin over the end of the metatarsals. There was significant bleeding in the wound indicating healing potential. Therefore, a wound VAC was applied plantarly. A soft dressing was applied with a cast padding and Mario wrap. The patient was then transported to the recovery room in stable condition. Unit #: [id number] #: [id number] Patient: LOUANN GOLDEN ESTIMATED BLOOD LOSS Minimal. COMPLICATIONS None. SPECIMENS None. TOURNIQUET TIME Zero. PLAN The patient will undergo wound VAC treatment for the next 2 to 3 weeks and hopefully will be able to do skin graft of his plantar defect. If this fails, he will require either Syme amputation or below the knee amputation. Dictated by.Jhon Kent/ricky TD: 11/22/2016 02:43 JOB #: [id number] OPERATIVE REPORT Page 1 of 1 X Vance Stapleton MD X PROCEDURE OPERATIVE NOTE
--- NOTE | ~2016-11-08 | FU ---
[facility] Nutrition Therapy DATE: 11/21/16 Patient: LOUANN GOLDEN Physician: PRINCESS Address: [facility] Room/Bed: [address] [place] [address], Zip: [place] [address] Admit Date: 11/08/16 Date of : [birth year] Height: 6 1 Weight: 136 62 NUTRITION MONITORING/FOLLOW-UP: Reason: Nutrition follow-up Admitting Dx: 45 y/o male admitted with uncontrolled DM and R foot gangrene Anthropometrics: Ht: 73", admission wt: 61.2 kg, current wt: 62 kg, BMI: 17.7 (underweight; based on admission wt) Labs: Glucose 151, POC 94-186 Meds: Reviewed; Prednisone and psych meds added, Novolog changed to medium SSI GI: Last BM 11/21 per patient Skin: Stage II pressure ulcer coccyx, CSI R foot, scattered abrasions/wounds noted Estimated Nutrition Needs: Increased Assessment: Chart reviewed, events noted. RD has been following patient's hospital course. Following extubation 11/16 has had decreased PO intake and depression, Dr. Prince now following, psych meds added. POD #12 R transmetatarsal amputation, he is NPO for planned R foot wound closure today. Previously on CC/HCHP diet with chocolate Glucerna shakes BID, received enteral nutrition through DHT for a brief period of time while in ICU, however he was not there long. He is tolerating room air. Patient did not wish to speak with me today, saying he is sleep deprived and wants to be left alone, sheet pulled all the way up over head. Glucose pretty well controlled on current insulin regimen, patient now on Prednisone. Spoke with RN (Tonya) who was unsure how the patient had been eating prior to NPO after midnight status. Of note, he is not appropriate for diet education. See RD recs below. Dx: 1) Underweight r/t unknown etiology AEB BMI 17.7, 73% IBW - ACTIVE 2) Unintentional weight loss r/t diabetes AEB patient report of 49% body weight loss in 2 years, 7 points malnutrition risk score, RD consult - ACTIVE 3) Increased nutrient needs r/t wound healing requirements AEB clinical dx, skin breakdown, recent transmetatarsal amputation - ACTIVE 4) Altered nutrition related lab values r/t uncontrolled DM AEB A1C 14.7, glucose POC 94-186 - ACTIVE (blood glucose better controlled) Intervention: Liberalize to regular diet with Glucerna shakes TID Monitoring, Evaluation and Goals: [facility] Nutrition Therapy DATE: 11/21/16 Patient: LOUANN GOLDEN Physician: PRINCESS Address: [address] [place] [address] 64 Room/Bed: [address] [place] [address], Zip: [place] [address] Admit Date: 11/08/16 Date of : [birth year] Height: 6 1 Weight: 136 62 1. EN to provide > 80% goal volume x 22 hours - NO LONGER RELEVANT 2. Tolerance of diet advancement - MET 3. Gradual weight gain - IN PROGRESS 4. Improvement in labs - IN PROGRESS 5. Promote wound healing - IN PROGRESS New goals: PO intake > 50% of meals, ONS intake > 75% TID Recommendations: 1. Once able advance to liberalized oral diet: Regular + chocolate Glucerna shakes TID. Appreciate staff to encourage oral intake. 2. Continue to control blood glucose with insulin regimen. 3. Give 1 packet Joey BID to help promote wound healing. Please add 500 mg Vitamin C BID and a daily MVI with minerals to medication regimen. Continue wound care prn. 4. Please weigh q 3 days for monitoring purposes, as the patient is underweight. RD will follow-up as available Status: Mild-oderate nutrition risk Respectfully, Audrey Estrada, AMANDA, LD [facility] cc: client file
--- NOTE | ~2016-11-08 | CR7 ---
[facility] A Service of [facility] RADIOLOGY TEXT RESULTS PATIENT: LOUANN GOLDEN LOCATION: [facility] 578-01 : [birth year] UNIT #: [id number] AGE: [address]: Srinivasan Sidhu MD SEX: M ORDER DR: [id number] [facility] [address]. [place], [place] [address] [id number] I MR#: [id number] Acc #: [id number] NAME: LOUANN GOLDEN : 1970 SEX: M STUDY DATE/TIME: 11/14/2016 17:34 UNIT: [facility] ROOM: [facility] STUDY DESCRIPTION: CR Abdomen Single AP View Attending Physician: Srinivasan Sidhu M.D. Ordering Physician: Srinivasan Sidhu M.D. Primary Care Physician: Primary Care Physician No MEDICAL IMAGING REPORT This report is preliminary unless electronic signature is present EXAM KUB HISTORY Abdominal distension for the past day COMPARISON 11/13/2016 TECHNIQUE Flat and upright views of the abdomen were obtained. FINDINGS The Dobbhoff tube tip is right near the gastroesophageal junction and has pulled out since the previous exam yesterday. It should be advanced 10-15 cm for better positioning in the mid stomach. Distended small and large bowel loops are again seen and not significantly changed. No free air is noted. IMPRESSION Moderately distended small and large bowel loops have not changed significantly since previous examination. The Dobbhoff tube has pulled back and the tip is now right of the gastroesophageal junction and should be advanced for better positioning. STAT * RESULT Dictated by... Fer Stovall M.D. [facility] A Service of [facility] RADIOLOGY TEXT RESULTS PATIENT: LOUANN GOLDEN LOCATION: [facility] 578-01 : [birth year] UNIT #: [id number] AGE: [address]: Srinivasan Sidhu MD SEX: M ORDER DR: THIS IS AN ELECTRONICALLY VERIFIED REPORT Fer Stovall M.D. at 11/17/2016 12:40 PM RLF/gómez TD: 11/14/2016 18:36 JOB #: [id number] MEDICAL IMAGING REPORT Page 1 of 1 COPY
--- NOTE | ~2016-11-08 | CO ---
Unit #: [id number] #: [id number] Patient: LOUANN PARRA [id number] [address] [address] [id number] I MR#: [id number] NAME: LOUANN PARRA ROOM: 576 Age: 46 Sex: M Admission Date: 11/08/2016 : 1970 Attending Physician: Srinivasan Sidhu M.D. Primary Care Physician: No Primary Care Physician Consultation Date: 11/20/2016 CONSULTATION REPORT REASON FOR CONSULTATION Depression. HISTORY OF PRESENT ILLNESS Mr. Louann Parra is a 46-year-old white male seen in room 576 bed-1 on 11/20/16. The patient was admitted on November 08 with gangrene of right foot. Patient reports his medications are not working, feeling sad, depressed, anxious, anxiety attack, trouble sleeping. Denied any suicidal or homicidal ideation, denied any psychotic symptoms. Patient dressed casually in hospital attire, lying comfortably in bed, able to answer questions appropriately. Compliant, cooperative. Vital signs - 97.6, 79, 18, 132/92. Oxygen saturation 97%. Patient reported he has a history of diabetes, history of neuropathy. Currently, medications are not working. Patient reports that he was on Prozac that helped him. PAST PSYCHIATRIC HISTORY Remarkable for history of depression. No history of any inpatient treatment of any suicide attempt. MEDICAL HISTORY AND MEDICATION HISTORY 1. History of insulin dependent diabetes mellitus. 2. Peripheral neuropathy for the last eight years. 3. Depression. 4. Thyroid disease. 5. Hyperlipidemia. Medication History - patient is on: 1. Insulin. 2. Suboxone. FAMILY HISTORY/SOCIAL HISTORY Patient lives alone, poor support system from family. No history of any abuse. No history of any substance abuse. REVIEW OF SYSTEMS Complete review of systems is unremarkable except as mentioned above. MENTAL STATUS EXAMINATION VITAL SIGNS: Please see above. GENERAL APPEARANCE: Patient dressed in hospital attire, lying comfortably in bed. Attention span and concentration fair. Speech - regular rate, coherent. Oriented in time, place and person. Mood and affect sad, Unit #: [id number] #: [id number] Patient: LOUANN PARRA dysphoric. Thought process coherent. Thought content - patient denied any thoughts of harming self or others or any hallucinations but sad, depressed. Recent and remote memory fair. Language intact. Fund of knowledge fair. Insight and judgment fair to slightly impaired. DIAGNOSIS Major depressive disorder, recurrent, moderate to severe - F33.0 SECONDARY DIAGNOSIS Deferred. MEDICAL DIAGNOSIS Please refer to H and P. STRESSORS Psychosocial stressor. ASSESSMENT/PLAN 1. Supportive psychotherapy and psychoeducation provided to patient. 2. Educated about benefits and side effects of medication and course and prognosis of illness. 3. Recommending at this time to start patient on Desyrel 100 mg at bedtime for sleep, Vistaril 25 mg three times a day for anxiety, Prozac 20 mg daily for depression. We will continue to follow. If needed, consider further adjustment of medication. Please feel free to call if any questions. Telephone number [phone]. Dictated by... Jhon Dotson/chela TD: 11/21/2016 08:12 JOB #: [id number] CONSULTATION REPORT Page 1 of 1 X Tay Prince MD CONSULTATION REPORT
--- NOTE | ~2016-11-08 | CR7 ---
[facility] A Service of [facility] RADIOLOGY TEXT RESULTS PATIENT: LOUANN GOLDEN LOCATION: [address] : [birth year] UNIT #: [id number] AGE: [address]: Srinivasan Sidhu MD SEX: M ORDER DR: [id number] [facility] [address]. [place], [place] [address] [id number] I MR#: [id number] Acc #: [id number] NAME: LOUANN GOLDEN : 1970 SEX: M STUDY DATE/TIME: 11/13/2016 18:04 UNIT: [facility] ROOM: [facility] STUDY DESCRIPTION: CR Abdomen Single AP View Attending Physician: Srinivasan Sidhu M.D. Ordering Physician: Jaime Rodgers M.D. Primary Care Physician: Primary Care Physician No MEDICAL IMAGING REPORT This report is preliminary unless electronic signature is present EXAM AP of the abdomen HISTORY Dobbhoff tube placement. No comparisons. FINDINGS Tip of the Dobbhoff tube projects over the stomach. IMPRESSION Tip of the Dobbhoff tube projects over the stomach. Dictated by... Mat Lombardi M.D. THIS IS AN ELECTRONICALLY VERIFIED REPORT Mat Lombardi M.D. at 11/15/2016 7:26 AM SEJAL/randall TD: 11/14/2016 00:13 JOB #: [id number] MEDICAL IMAGING REPORT Page 1 of 1 COPY
--- NOTE | ~2016-11-08 | CR72 ---
[facility] A Service of [facility] & [facility] RADIOLOGY TEXT RESULTS PATIENT: LOUANN GOLDEN LOCATION: [address]18 : [birth year] UNIT #: [id number] AGE: [address]: Srinivasan Sidhu MD SEX: M ORDER DR: [id number] [facility] [address] [place], [place] [address] [id number] I MR#: [id number] Acc #: [id number] NAME: LOUANN GOLDEN : 1970 SEX: M STUDY DATE/TIME: 11/13/2016 12:56 UNIT: [facility] ROOM: [facility] STUDY DESCRIPTION: CR Chest Single View Portable Attending Physician: Srinivasan Sidhu M.D. Ordering Physician: Srinivasan Sidhu M.D. Primary Care Physician: Primary Care Physician No MEDICAL IMAGING REPORT This report is preliminary unless electronic signature is present EXAM Chest portable, 11/13/2016 12:56 hours HISTORY 46-year-old man with shortness of air today. COMPARISON 11/08/2016 FINDINGS Portable upright chest demonstrates normal heart size with stable aorta. There is new diffuse bilateral airspace change in the upper lobes and mixed interstitial and airspace change in the lower lobes. These findings have occurred since 11/08/2016 and likely represent diffuse edema. There is no definite pleural effusion or pneumothorax. IMPRESSION As compared to 11/08/2016 there is new diffuse bilateral airspace changes in the upper lobes and mixed interstitial and airspace changes in the lower lobes without evidence of pleural effusion or pneumothorax. Findings most likely represent pulmonary edema. STAT * RESULT Dictated by... Key Juarez M.D. THIS IS AN ELECTRONICALLY VERIFIED REPORT Key Juarez M.D. at 11/13/2016 2:26 PM GERMAN/vince TD: 11/13/2016 13:27 JOB #: [id number] [facility] A Service of [facility] & [facility] RADIOLOGY TEXT RESULTS PATIENT: LOUANN GOLDEN LOCATION: [facility]3-18 : [birth year] UNIT #: [id number] AGE: [address]: Srinivasan Sidhu MD SEX: M ORDER DR: MEDICAL IMAGING REPORT Page 1 of 1 COPY
--- NOTE | ~2016-11-08 | OR ---
Unit #: [id number] #: [id number] Patient: LOUANN GOLDEN [id number] [address] [address] [id number] I MR#: [id number] NAME: LOUANN GOLDEN ROOM: [facility] Date of Procedure: 11/13/2016 Admission Date: 11/08/2016 Surgeon: Jaime Rodgers M.D. : 1970 Attending Physician: Srinivasan Sidhu M.D. Primary Care Physician: Primary Care Physician No PROCEDURE OPERATIVE NOTE PROCEDURE PERFORMED Endotracheal intubation. INDICATION Respiratory failure. PREPROCEDURE DIAGNOSIS Respiratory failure. POSTPROCEDURE DIAGNOSIS Respiratory failure. DETAILS OF PROCEDURE After placing patient in proper position, we gave patient 20 mg of etomidate, 25 mcg of fentanyl and with size 4 Khoa laryngoscope, and size 8 endotracheal tube, passed under direct visualization through the vocal cords. The patient tolerated the procedure very well. No complications happened. Dictated by... Jhon Chowdary/chinmay TD: 11/13/2016 20:09 JOB #: [id number] PROCEDURE OPERATIVE NOTE Page 1 of 1 X Jaime Rodgers MD X PROCEDURE OPERATIVE NOTE
--- NOTE | ~2016-11-08 | CO ---
Unit #: [id number] #: [id number] Patient: LOUANN GOLDEN [id number] [address] [address] [id number] I MR#: [id number] NAME: LOUANN GOLDEN ROOM: 576 Age: 46 Sex: M Admission Date: 11/08/2016 : 1970 Attending Physician: Srinivasan Sidhu M.D. Consultation Date: 11/22/2016 CONSULTATION REPORT REASON FOR CONSULTATION Followup. DISCUSSION Mr. Louann Golden is a 46-year-old white male, seen in room 576, bed 1 on 11/22/2016. The patient had surgery on his right foot toe due to gangrene. The patient reports that in lot of pain, but able to answer questions appropriately, made good eye contact. Denied any suicidal or homicidal ideation. Denied any psychotic symptom, but still feeling sad, depressed, cooperative. The patient's vital signs; temperature 97.8, pulse 82, respiratory rate 17, blood pressure 109/69, oxygen saturation 96%. REVIEW OF SYSTEMS Complete review of systems unremarkable. MENTAL STATUS EXAMINATION Vital signs; temperature 98.6, pulse 82, respiratory rate 17, blood pressure 124/84, oxygen saturation 99%. General appearance; the patient dressed in hospital attire, right foot was in bandage, seems in pain. Attention and concentration, fair. Speech, regular rate. Oriented in time, place, and person. Mood and affect, sad and depressed. Thought process, coherent. Thought content, the patient denied any thoughts of harming self or others, but still feeling sad, depressed, flat affect. Denied any hallucination. Recent and remote memory, fair. Language, intact. Fund of knowledge, fair. Insight and judgment, fair to slightly impaired. DIAGNOSIS Psychiatric: Major depressive disorder, recurrent, severe, F33.2. ASSESSMENT/PLAN 1. Supportive psychotherapy and psychoeducation provided to the patient. 2. Educated about benefits and side effects of medication and course and prognosis of illness. 3. Advised to continue with current medications Prozac, Vistaril, Desyrel. If needed, consider further adjustment of medication. We will continue to follow. Please feel free to call if any question, telephone #[phone]. Dictated by... Tay Prince M.D. Unit #: [id number] #: [id number] Patient: LOUANN GOLDEN MATTHEW/ricky TD: 11/22/2016 22:12 JOB #: [id number] CONSULTATION REPORT Page 1 of 1 X Tay Prince MD CONSULTATION REPORT
--- NOTE | ~2016-11-08 | CR72 ---
[facility] A Service of [facility] & [facility] RADIOLOGY TEXT RESULTS PATIENT: LOUANN GOLDEN LOCATION: [facility] 578-01 : [birth year] UNIT #: [id number] AGE: [address]: Srinivasan Sidhu MD SEX: M ORDER DR: [id number] [facility] [address] [place], [place] [address] [id number] I MR#: [id number] Acc #: [id number] NAME: LOUANN GOLDEN : 1970 SEX: M STUDY DATE/TIME: 11/16/2016 04:43 UNIT: [facility] ROOM: [facility] STUDY DESCRIPTION: CR Chest Single View Portable Attending Physician: Srinivasan Sidhu M.D. Ordering Physician: Jaime Rodgers M.D. Primary Care Physician: Primary Care Physician No MEDICAL IMAGING REPORT This report is preliminary unless electronic signature is present EXAM Portable chest 11/16/2016 04:43 INDICATION Respiratory failure. Ventilator patient. FINDINGS AP portable chest compared with 11/15/2016. The patient has been extubated. Right IJ line in the SVC. Heart size remains normal. Diffuse consolidation in the right lung with an upper lobe predominance is stable. There are some more patchy type infiltrates in the left lung. These are slightly worsened in the left perihilar lung but are otherwise unchanged. No pneumothorax. Dictated by... Fer Jewell Jr., M.D. THIS IS AN ELECTRONICALLY VERIFIED REPORT Fer Jewell Jr., M.D. at 11/16/2016 10:15 PM VERONA/harvey TD: 11/16/2016 07:27 JOB #: [id number] MEDICAL IMAGING REPORT Page 1 of 1 COPY
--- NOTE | ~2016-11-08 | CO ---
Unit #: [id number] #: [id number] Patient: LOUANN PARRA [id number] [address] [address] [id number] I MR#: [id number] NAME: LOUANN PARRA ROOM: 477 Age: 45 Sex: M Admission Date: 11/08/2016 : 1970 Attending Physician: Srinivasan Sidhu M.D. Primary Care Physician: Rola Primary Care Physician Consultation Date: 11/09/2016 CONSULTATION REPORT CHIEF COMPLAINT Gangrene of right foot, uncontrolled diabetes mellitus. HISTORY OF PRESENT ILLNESS Mr. Parra is a 45-year-old white male with a history of insulin-dependent diabetes mellitus with peripheral neuropathy x8 years, depression, thyroid disease and hyperlipidemia. He presented to the emergency room with reports of a painful knot that developed over his right foot approximately 1 week ago. Around the same time he noticed a discoloration of his fourth and fifth toes. He states at home no drainage was present from his wound and over the past 2 days an odor did develop, and he presented to the emergency room. The patient states his right foot is painful, and he does experience a sharp shooting feeling. He reports a history of diabetic neuropathy and states he does not check his sugars regularly. Patient is a smoker. He states he smokes 1 1/2 packs per day. He denies any fevers, sweats or chills. The patient did recall that he stepped on a nail approximately 1 week ago, which may have initiated this infection. PAST MEDICAL HISTORY insulin-dependent diabetes mellitus with peripheral neuropathy x8 years, depression, thyroid disease, hyperlipidemia. ALLERGIES None. HOME MEDS Insulin 70/30 - 25 units b.i.d., Suboxone 8 mg t.i.d. FAMILY HISTORY Negative for diabetes mellitus. SOCIAL HISTORY Lives alone. No alcohol use reported. Smokes 1 1/2 packs per day. REVIEW OF SYSTEMS All systems were reviewed and negative except for the symptoms mentioned in the HPI. PHYSICAL EXAMINATION GENERAL: Cachectic, no acute distress, alert and oriented x3. VITAL SIGNS: Temperature was 97.8, pulse was 80, respirations 14, O2 100%, blood pressure 115/84, weight of 134 pounds. CARDIAC: Pulses were normal. RESPIRATORY: No increased shortness of air or respiratory distress noted. Unit #: [id number] #: [id number] Patient: LOUANN PARRA EXTREMITIES: Right foot pedal edema present, palpable dorsalis pedis and posterior tibialis pulses. Ulceration of the plantar mid foot extending to fourth and fifth toes. Blackened fifth toe and blue discoloration of his third and fourth digits. Malodorous drainage present inferior to his fifth digit. Superficial sores present over hands and arms. NEUROLOGIC: Cranial nerves intact. DIAGNOSTIC STUDIES LABS: HIV labs are negative. Glucose 138, potassium of 2.9, BUN less than 5, creatinine of 0.4, calcium of 8, lactic acid of 1.6. CBC - White blood cells 12.3, red blood cells 3.6, hemoglobin of 11, hematocrit of 32.7. IMAGING: X-ray - Extensive soft tissue gas in the plantar margin of the lateral mid and forefoot extending into his fourth and fifth digits and lateral margin of fifth MTP joint. No bone destruction or fracture noted. ASSESSMENT/PLAN A 45-year-old white male with gangrene of his right foot and uncontrolled diabetes mellitus. We are ordering an MRI of his right foot without contrast this morning. Patient is to remain NPO, and we will plan for surgery with Dr. Stapleton later today. Dictated by... Audrey Bobo PA-C for Jhon Martinez/lor TD: 11/09/2016 16:02 JOB #: [id number] CONSULTATION REPORT Page 1 of 1 X AUDREY BOBO CONSULTATION REPORT
--- NOTE | ~2016-11-08 | HP ---
Unit #: [id number] #: [id number] Patient: LOUANN GOLDEN [id number] [address] [place], [place] [address] [id number] MR#: [id number] NAME: LOUANN GOLDEN ROOM: 43901 Age: 45 Sex: M Admission Date: 11/08/2016 : 1970 Attending Physician: Kathi Nicholas M.D. Primary Care Physician: Primary Care Physician No HISTORY AND PHYSICAL CHIEF COMPLAINT Gangrene, right foot, and uncontrolled diabetes mellitus. HISTORY OF PRESENT ILLNESS This 45-year-old male with IDDM x8 years and peripheral neuropathy is admitted for wet gangrene, right foot, and uncontrolled diabetes mellitus. One week ago, the patient developed a "knot" over the right foot. This progressed and over the past two days notes weeping of the right foot with malodorous drainage, pain, and open areas. He presented to this emergency department with a glucose of 510. On examination, he has blackened right fifth toe, the third and fourth toes of the right foot are swollen and discolored, and there was a weeping large wound over the plantar aspect. Plain x-ray was read as moderately extensive soft tissue gas plantar margin and lateral mid and forefoot affecting the digits of the fourth and fifth toes and the lateral margin of the fifth metatarsal joint. No definite bone destruction or fracture. In the ER, the patient was bolused with two liters of saline, given IV Zosyn and vancomycin, and I have asked that clindamycin also be added. A call was also made to Dr. Stapleton who will be seeing the patient in the morning. The patient also has multiple open sores over his arms and backs of his hands which he states are due to lightheadedness and falling. He looks to be quite cachectic on exam. PAST MEDICAL HISTORY 1. Insulin-dependent diabetes mellitus with peripheral neuropathy x8 years. 2. Depression. 3. Thyroid disease. 4. Hyperlipidemia. ALLERGIES None. HOME MEDICATIONS 1. 70/30 of some sort of insulin 25 units b.i.d. 2. Patient states that he takes Suboxone 8 mg t.i.d. Will check DOT. He obtains Suboxone through the [facility]. FAMILY HISTORY Negative for diabetes mellitus. SOCIAL HISTORY Unit #: [id number] #: [id number] Patient: LOUANN GOLDEN The patient lives alone. He smokes between one and one and a half packs per day of tobacco and would like to stop smoking. He does not drink alcohol. REVIEW OF SYSTEMS Notable for lightheadedness, falling, diabetes, neuropathy, opiate addiction, depression, thyroid disease, hyperlipidemia, tobacco abuse, painful, and swollen right foot with malodorous drainage. All other systems were reviewed and are otherwise negative. PHYSICAL EXAMINATION GENERAL: A cachectic, 45-year-old male who currently is in no acute distress. VITAL SIGNS: Temperature 98.9, pulse 102, respirations 18, blood pressure 92/64, and O2 saturation 99% on room air. HEENT: Eyes PERRLA. Extraocular muscles are intact. Pharynx looks to be consistent with thrush. NECK: Supple without adenopathy or thyromegaly. CHEST: Clear with diminished breath sounds. CARDIAC: Normal S1 and S2 without definite murmur. ABDOMEN: Bowel sounds are present. Generalized mild abdominal tenderness with palpation but no rebound guarding. Mild hepatomegaly noted on exam. No definite masses. EXTREMITIES: Right foot is more swollen than the left. There is an open superficial ulceration with some sloughing of the skin over the plantar aspect of the right foot. There is blackening of the right fifth toe. The third and fourth toes look to be somewhat bluish in discoloration as well. Malodorous drainage present. No definite crepitus. Pedal pulse good on the left and weaker on the right, but the foot is edematous. There are open superficial sores over the hands and the arms. NEUROLOGIC: Patient is awake and alert. He is oriented. His cranial nerves are intact. He is generally weak throughout. He has difficulty even turning over. DIAGNOSTIC STUDIES ADMISSION LABORATORY: Hematocrit is 35.1, white blood count is 12.3, and normal platelet count. Normal coags. SMA-12: Glucose 510, sodium 130, chloride 92, calcium 8.1, albumin 2.5, and alkaline phosphatase 244. Normal amylase and lipase. Lactic acid normal. Cardiac markers are negative. Urinalysis positive glucose. IMAGING: Plain x-rays of the right foot show moderate to extensive soft tissue gas plantar margin of lateral mid and forefoot extending into the fourth and fifth digits and lateral margin of the fifth MTP joint. No definite bone destruction or fracture. Chest x-ray no acute disease. CARDIOLOGY: EKG shows a normal sinus rhythm, rate 94, normal appearing. ASSESSMENT 1. Wet gangrene of the right foot with extensive soft tissue gas mainly affecting the fourth and fifth toes but this looks as if it affects the third toe as well. 2. Uncontrolled insulin-dependent diabetes mellitus with peripheral neuropathy. 3. Tobacco abuse. 4. History of opiate addiction reportedly on Suboxone. 5. Tobacco abuse. 6. Cachexia. Unit #: [id number] #: [id number] Patient: LOUANN GOLDEN 7. Multiple open sores over the arms and hands after falling with lightheadedness. 8. Possible oral thrush. PLANS 1. IV fluids and supportive treatment. 2. Vancomycin, Zosyn, and clindamycin. 3. Orthopedic surgeon has already been consulted in the ER and will be seeing the patient in the morning. He asked that the patient be made n.p.o. 4. Check urine toxicology screen. 5. HIV testing. 6. Hemoglobin A1c. 7. Nystatin swish and swallow. 8. Will check a DOT on this patient. 9. Bactroban ointment over the sores of the patient's arms and legs. 1. Dictated by Jhon Velez/madison TD: 11/08/2016 22:34 JOB #: [id number] HISTORY AND PHYSICAL Page 1 of 1 X Kathi Nicholas MD X HISTORY AND PHYSICAL
--- NOTE | ~2016-11-08 | OR ---
Unit #: [id number] #: [id number] Patient: LOUANN GOLDEN [id number] [address] [place], [place] [address] [id number] MR#: [id number] NAME: LOUANN GOLDEN ROOM: 477 Date of Procedure: 11/09/2016 Admission Date: 11/08/2016 Surgeon: Jacy Stapleton M.D. : 1970 Attending Physician: Srinivasan Sidhu M.D. OPERATIVE REPORT PREOPERATIVE DIAGNOSIS Right foot gangrene. POSTOPERATIVE DIAGNOSIS Right foot gangrene. PROCEDURE PERFORMED Open right foot transmetatarsal amputation ([id number]). BLACK PICKLER Rodolfo. ANESTHESIA General. INDICATIONS FOR SURGERY This 45-year-old male has a several week history of progressive right foot gangrene secondary to neglected insulin-dependent diabetes. He came into the hospital with a blood sugar of over 500 with severely necrotic right lateral forefoot. The patient is therefore admitted for operative intervention for removal of the tissue and treatment of his infection. DESCRIPTION OF PROCEDURE The patient was taken to the operating room, placed in a supine position and general anesthetic was induced. Preoperative IV antibiotics were being administered, therefore, the antibiotic protocol was not followed. The right foot was identified as the correct operative extremity during the time-out procedure. The right leg was then prepped and draped in the usual sterile fashion. The leg was exsanguinated with an Esmarch bandage, which was left wrapped around the midshaft tibia to act as a tourniquet. Dorsal and plantar fish-mouth incisions were made over the foot. The dorsal incision proceeded directly down to bone, where the first through fifth metatarsal shafts were exposed subperiosteally. The microsagittal saw was used to cut the metatarsals at the junction of the proximal third and distal two-thirds with care taken to preserve the normal parabolic length of the metatarsals. The plantar flap was then dissected. There was a large 12 cm x 5 mm wide area of necrosis proceeding from the lateral plantar forefoot into the medial arch and this was completely excised. This left questionable blood supply to the medial plantar flap, pus was obtained and was tracking up the flexor hallucis longus tendon sheath. This was cultured for aerobic and anaerobic bacteria. A large amount of saline was then used to completely irrigate out the plantar foot abscess and dorsal foot as well. All necrotic tissue and appearing tissue Unit #: [id number] #: [id number] Patient: LOUANN GOLDEN was removed along with all infection. The wound was then packed open with Betadine-soaked Kerlix. Dressing, sponges, cast padding, and Mario wrap were applied. The patient was then transported to the recovery room in stable condition. ESTIMATED BLOOD LOSS Minimal. COMPLICATIONS None. SPECIMENS Right forefoot aerobic and anaerobic cultures. TOURNIQUET TIME Approximately 15 minutes. PLAN The patient will undergo serial dressing changes on the benavidez and continue triple IV antibiotic coverage. We will make a decision regarding possible wound closure next week versus [id number] amputation. Dictated byJhon Montes/ricky TD: 11/10/2016 00:14 JOB #: [id number] OPERATIVE REPORT Page 1 of 1 X Vance Stapleton MD X PROCEDURE OPERATIVE NOTE
--- NOTE | ~2016-11-08 | FU ---
[facility] DATE: 11/17/16 Patient: LOUANN GOLDEN Physician: PRINCESS Address: [facility] [facility] [address] Room/Bed: [address] [place] [address], Zip: [place] [address] Admit Date: 11/08/16 Date of : [birth year] Height: 6 1 Weight: 156 71 NUTRITION MONITORING/FOLLOW-UP: Reason: PT SEEN FOR FOLLOW-UP DX: GANRENE (R) FOOT Anthropometrics: 6'1", WT: 156# (71 KG), BMI: 20.6 -ADMIT WEIGHT: 134# (61.2 KG) Labs: GLU: 68, CA+:7.7, ALB: 1.7, A1c: 14.7 (11/08/16) Meds: NOVOLOG, LEVEMIR, SOLU-MEDROL, NACL, PROTONIX, SENOKOT, REGLAN, ZOFRAN, PHENERGAN, MILK OF MAGNESIA, LEVOTHROID (PO) I&O's: 3630/1452, 2 BMs NOTED Skin: STAGE 2 PRESSURE ULCER LOCATED COCCYX/BUTTOCKS; SCATTERED ABRASIONS/WOUNDS BUE/BLE; CLOSED SURGICAL INCISION (R) FOOT; INTACT ABRASIONS BL ARMS; REDNESS TO SCROTUM EDEMA: (L) FOOT 2+ EDEMA Estimated Nutrition Needs: 8512-6271 KCAL 92-110 G PRO Assessment: CHART REVIEWED AND EVENTS NOTED. PT SEEN FOR FOLLOW-UP. PT RECEIVING CC +2200 KCAL + HIGH PROTEIN DIET. PT REPORTS DECREASED PO INTAKE 2' DECREASED APPETITE. PER RN, PT ONLY TAKING BITES OF FOODS. PT REPORTS RECEIVING GLUCERNA SHAKES BID W/MEALS. THIS RD ENCOURAGED ADEQUATE KCAL AND PROTEIN INTAKE, PT AGREED. OF NOTE, PT NOT RECEIVING ENTERAL NUTRITION SUPPORT AT THIS TIME (DHT D/C'D). RD TO CONTINUE TO FOLLOW. SEE RECOMMENDATIONS BELOW. Dx: UNDERWEIGHT R/T UNKNOWN ETIOLOGY AEB BMI OF 17.7, 73%IBW.-ACTIVE 2. UNINTENTIONAL WEIGHT LOSS R/T DM AEB PT REPORT OF 49% BODY WEIGHT LOSS IN 2 YEARS, 7 POINTS MALNUTRITION RISK SCORE, RD CONSULT.-ACTIVE 3. INCREASED NUTRIENT NEEDS R/T WOUND HEALING REQUIREMENTS AEB DX, SKIN BREAKDOWN, RECENT TO AMPUTATION.-ACTIVE 4. ALTERED NUTRITION RELATED LAB VALUES R/T UNCONTROLLED DM AEB A1c OF 14.7, CLINICAL DX-ACTIVE. Intervention: 1. CC+ 2200 KCAL + HIGH PROTEIN DIET 2. GLUCERNA SHAKES BID W/MEALS [facility] Therapy DATE: 11/17/16 Patient: LOUANN GOLDEN Physician: PRINCESS Address: [address] [place] [address] [address] Room/Bed: [address] [place] [address], Zip: [place] [address] Admit Date: 11/08/16 Date of : [birth year] Height: 6 1 Weight: 156 71 MONITOR: -PO INTAKE/APPETITE -WEIGHTS -SUPPLEMENT INTAKE -SUPPLEMENTAL NUTRITION? Monitoring, Evaluation and Goals: 1. TOLERANCE OF DIET ADVANCEMENT-IN PROGRESS/NOT MET 2. GRADUAL WEIGHT GAIN-IN PROGRESS 3. IMPROVEMENT IN LABS-IN PROGRESS 4. PROMOTE WOUND HEALING-IN PROGRESS NEW GOALS: 1. ENTERAL NUTRITION; TOLERATE >80% ESTIMATED NUTRIENT NEEDS AT GOAL VOLUME X 22 HOURS MONITOR: -PO INTAKE/APPETITE -WEIGHTS -SUPPLEMENT INTAKE -SUPPLEMENTAL NUTRITION (EN) Recommendations: 1. CONTINUE TO ENCOURAGE ADEQUATE PO AND SUPPLEMENT INTAKE 2. IF PT CONSUMES MINIMAL PO INTAKE, RECOMMEND TO PLACE PEG AND INITIATE ENTERAL NUTRITION SUPPORT OF GLUCERNA 1.5 @ 20 ML/HR, ADVANCE 10 ML q 6 HOURS TO GOAL RATE OF 60 ML/HR X 22 HOURS + SUGAR-FREE PROSTAT ONCE DAILY -PROVIDES 2080 KCAL, 123 G PRO, 1094 ML FREE H20 PLEASE NOTE THAT PT IS RECEIVING LEVOTHROID-HOLD ENTERAL NUTRITION SUPPORT FOR ONE HOUR BEFORE AND ONE HOUR AFTER ADMINISTRATION 3. PLEASE CONTINUE TO ADD MOOKIE BID + MVI W/MINERAL DAILY + 500 MG VITAMIN C BID + 220 MG ZINC X 10 DAYS TO PROMOTE WOUND HEALING 4. PLEASE CONTINUE TO WEIGH PT q 3 DAYS FOR MONITORING PURPOSES RD WILL F/U PER PROTOCOL PT IS MOD/SEVERELY COMPROMISED Respectfully, HAYLEY AL MS, RD, LD [facility] DATE: 11/17/16 Patient: LOUANN GOLDEN Physician: PRINCESS Address: [address] [place] [address] [address] Room/Bed: [address] [place] [address], Zip: [place] [address] Admit Date: 11/08/16 Date of : [birth year] Height: 6 1 Weight: 156 71 [facility] cc: client file
[2016-11-08 20:07] LABS: URINE SOURCE CLEAN CATCH
[2016-11-08 20:15] LABS: URINE APPEARANCE CLEAR; URINE BILIRUBIN NEG (NEG); URINE BLOOD NEG (NEG); URINE COLOR YELLOW; URINE GLUCOSE >1000 MG/DL (NEG); URINE KETONE NEG (NEG); URINE LEUKOCYTE ESTERASE NEG (NEG); URINE NITRATE NEG (NEG); URINE PROTEIN NEG (NEG); URINE SPECIFIC GRAVITY 1.034 (1.003-1.035); URINE UROBILINOGEN 0.2 MG/DL (NEG)
[2016-11-08 20:15] LABS: BASOPHIL# 0.1 X10e3 (0-0.3); BASOPHIL% 0.6 % (0-2.5); EOSINOPHIL# 0.1 X10e3 (0-0.7); EOSINOPHIL% 0.8 % (0.0-7.0); HEMATOCRIT 35.1 % (38.0-50.0); HEMOGLOBIN 11.7 gm/dL (13.0-16.0); LYMPHOCYTE# 1.4 X10e3 (1.0-3.5); LYMPHOCYTE% 11.1 % (17.0-45.0); MEAN CELL VOLUME 87.8 FL (83-96); MEAN CORPUSCULAR HEMOGLOBIN 29.4 PG (28-34); MEAN CORPUSCULAR HGB CONC 33.5 g/dL (30-36); MEAN PLATELET VOLUME 6.9 FL (6.5-11.5); MONOCYTE# 0.5 X10e3 (0-1.0); MONOCYTE% 4.3 % (3.0-12.0); NEUTROPHIL# 10.2 X10e3 (1.5-7.1); NEUTROPHIL% 83.2 % (40-75); PLATELET COUNT 241 X10e3 (140-420); RED BLOOD COUNT 3.99 X10e (3.90-5.60); RED CELL DISTRIBUTION WIDTH 13.7 % (11.0-15.5); WHITE BLOOD COUNT 12.3 X10e3 (4.0-10.5)
[2016-11-08 20:19] LABS: DIFF IND NO
[2016-11-08 20:24] LABS: CULTURE INDICATED? NO
[2016-11-08 20:27] LABS: PARTIAL THROMBOPLASTIN TIME 30.2 SECONDS (23.5-31.3); PROTHROMBIN TIME (PATIENT) 10.7 SECONDS (9.6-11.5)
[2016-11-08 20:36] LABS: ALBUMIN SERUM 2.5 g/dL (3.5-5.0); ALKALINE PHOSPHATASE 244 U/L (32-92); ALT (SGPT) 15 U/L (10-40); AMYLASE 8 U/L (0-46); AST (SGOT) 10 U/L (10-42); BILIRUBIN, DIRECT 0.1 mg/dL (0.0-0.2); BILIRUBIN,INDIRECT 0.2 mg/dL (0.0-0.9); BILIRUBIN,TOTAL 0.3 mg/dL (0.2-2.0); CALCIUM SERUM 8.1 mg/dL (8.4-10.2); CARBON DIOXIDE 30 mmol/L (22-31); CHLORIDE 92 mmol/L (100-111); CREATININE SERUM 0.4 mg/dL (0.6-1.4); GLOM FILT RATE Estimated 143.5 mL/min (>60); LIPASE 12 U/L (22-51); MAGNESIUM 1.8 mg/dL (1.6-3.0); PHOSPHOROUS 2.2 mg/dL (2.5-4.6); POTASSIUM 3.6 mmol/L (3.5-5.1); PROTEIN TOTAL SERUM 6.7 g/dL (6.0-8.3); SODIUM 130 mmol/L (135-145)
[2016-11-08 20:37] LABS: BLOOD UREA NITROGEN <5 mg/dL (9-23); GLUCOSE FASTING 510 mg/dL (70-110)
[2016-11-08 20:42] LABS: POC - CKMB 2.7 ng/mL (0.0-7.9); POC - TROPONIN <0.05 ng/mL (<=0.05)
[2016-11-08 22:41] LABS: AMPHETAMINE NEG (NEG); BARBITURATES NEG (NEG); BENZODIAZEPINES NEG (NEG); COCAINE NEG (NEG); MARIJUANA NEG (NEG); OPIATES NEG (NEG); TRICYCLIC ANTIDEPRESSANTS NEG (NEG); U METHADONE NEG (NEG)
[2016-11-09 00:39] LABS: BASOPHIL# 0.1 X10e3 (0-0.3); BASOPHIL% 0.4 % (0-2.5); EOSINOPHIL# 0.2 X10e3 (0-0.7); EOSINOPHIL% 1.4 % (0.0-7.0); HEMATOCRIT 32.7 % (38.0-50.0); LYMPHOCYTE# 2.1 X10e3 (1.0-3.5); LYMPHOCYTE% 16.9 % (17.0-45.0); MEAN CELL VOLUME 86.8 FL (83-96); MEAN CORPUSCULAR HEMOGLOBIN 29.2 PG (28-34); MEAN CORPUSCULAR HGB CONC 33.6 g/dL (30-36); MEAN PLATELET VOLUME 6.4 FL (6.5-11.5); MONOCYTE# 0.6 X10e3 (0-1.0); MONOCYTE% 4.5 % (3.0-12.0); NEUTROPHIL# 9.4 X10e3 (1.5-7.1); NEUTROPHIL% 76.8 % (40-75); PLATELET COUNT 228 X10e3 (140-420); RED BLOOD COUNT 3.76 X10e (3.90-5.60); RED CELL DISTRIBUTION WIDTH 13.8 % (11.0-15.5); WHITE BLOOD COUNT 12.3 X10e3 (4.0-10.5)
[2016-11-09 00:40] LABS: DIFF IND NO
[2016-11-09 01:10] LABS: CARBON DIOXIDE 28 mmol/L (22-31); CHLORIDE 100 mmol/L (100-111); CREATININE SERUM 0.4 mg/dL (0.6-1.4); GLOM FILT RATE Estimated 143.5 mL/min (>60); GLUCOSE FASTING 246 mg/dL (70-110); SODIUM 135 mmol/L (135-145)
[2016-11-09 01:14] LABS: BLOOD UREA NITROGEN <5 mg/dL (9-23)
[2016-11-09 01:16] LABS: POTASSIUM 2.9 mmol/L (3.5-5.1)
[2016-11-10 04:19] LABS: BASOPHIL% 0.4 % (0-2.5); EOSINOPHIL# 0.1 X10e3 (0-0.7); EOSINOPHIL% 0.9 % (0.0-7.0); HEMATOCRIT 31.4 % (38.0-50.0); HEMOGLOBIN 10.5 gm/dL (13.0-16.0); LYMPHOCYTE# 1.3 X10e3 (1.0-3.5); LYMPHOCYTE% 11.4 % (17.0-45.0); MEAN CELL VOLUME 87.3 FL (83-96); MEAN CORPUSCULAR HEMOGLOBIN 29.2 PG (28-34); MEAN CORPUSCULAR HGB CONC 33.5 g/dL (30-36); MONOCYTE# 0.6 X10e3 (0-1.0); MONOCYTE% 5.1 % (3.0-12.0); NEUTROPHIL# 9.1 X10e3 (1.5-7.1); NEUTROPHIL% 82.2 % (40-75); PLATELET COUNT 236 X10e3 (140-420); RED BLOOD COUNT 3.59 X10e (3.90-5.60); RED CELL DISTRIBUTION WIDTH 13.9 % (11.0-15.5); WHITE BLOOD COUNT 11.1 X10e3 (4.0-10.5)
[2016-11-10 04:23] LABS: DIFF IND NO
[2016-11-10 04:36] LABS: BLOOD UREA NITROGEN <5 mg/dL (9-23); CALCIUM SERUM 7.4 mg/dL (8.4-10.2); CARBON DIOXIDE 28 mmol/L (22-31); CHLORIDE 101 mmol/L (100-111); CREATININE SERUM 0.5 mg/dL (0.6-1.4); GLOM FILT RATE Estimated 130.9 mL/min (>60); GLUCOSE FASTING 110 mg/dL (70-110); MAGNESIUM 1.5 mg/dL (1.6-3.0); POTASSIUM 3.1 mmol/L (3.5-5.1); SODIUM 135 mmol/L (135-145)
[2016-11-10] MEDS ORDERED: EFFEXOR75 M3 PO (10:57)
[2016-11-10] MEDS ORDERED: LOVASTATIN20 MG PO (10:58)
[2016-11-10] MEDS ORDERED: GABAPENTIN400 MG PO (10:58)
[2016-11-10] MEDS ORDERED: NOVOLOG7030 SUBQ (10:58)
[2016-11-10] MEDS ORDERED: LEVOTHYROXINE75 MCG PO (10:59)
[2016-11-11 06:18] LABS: BASOPHIL# 0.1 X10e3 (0-0.3); BASOPHIL% 0.7 % (0-2.5); EOSINOPHIL# 0.1 X10e3 (0-0.7); EOSINOPHIL% 0.6 % (0.0-7.0); HEMATOCRIT 33.3 % (38.0-50.0); HEMOGLOBIN 10.9 gm/dL (13.0-16.0); MEAN CELL VOLUME 88.9 FL (83-96); MEAN CORPUSCULAR HEMOGLOBIN 29.2 PG (28-34); MEAN CORPUSCULAR HGB CONC 32.8 g/dL (30-36); MEAN PLATELET VOLUME 6.8 FL (6.5-11.5); MONOCYTE# 0.4 X10e3 (0-1.0); MONOCYTE% 3.7 % (3.0-12.0); NEUTROPHIL# 9.2 X10e3 (1.5-7.1); PLATELET COUNT 243 X10e3 (140-420); RED BLOOD COUNT 3.74 X10e (3.90-5.60); RED CELL DISTRIBUTION WIDTH 14.1 % (11.0-15.5); WHITE BLOOD COUNT 10.7 X10e3 (4.0-10.5)
[2016-11-11 06:23] LABS: DIFF IND NO
[2016-11-11 06:55] LABS: CALCIUM SERUM 7.2 mg/dL (8.4-10.2); CREATININE SERUM 0.8 mg/dL (0.6-1.4); GLOM FILT RATE Estimated 107.9 mL/min (>60); MAGNESIUM 1.9 mg/dL (1.6-3.0); POTASSIUM 3.9 mmol/L (3.5-5.1)
[2016-11-12 03:55] LABS: CALCIUM SERUM 7.4 mg/dL (8.4-10.2); CREATININE SERUM 0.8 mg/dL (0.6-1.4); GLOM FILT RATE Estimated 107.9 mL/min (>60); POTASSIUM 3.9 mmol/L (3.5-5.1)
[2016-11-13 03:48] LABS: HEMATOCRIT 37.6 % (38.0-50.0); HEMOGLOBIN 12.5 gm/dL (13.0-16.0); MEAN CELL VOLUME 87.1 FL (83-96); MEAN CORPUSCULAR HEMOGLOBIN 28.8 PG (28-34); MEAN CORPUSCULAR HGB CONC 33.1 g/dL (30-36); MEAN PLATELET VOLUME 6.4 FL (6.5-11.5); RED BLOOD COUNT 4.32 X10e (3.90-5.60); RED CELL DISTRIBUTION WIDTH 14.1 % (11.0-15.5)
[2016-11-13 03:49] LABS: WHITE BLOOD COUNT 17.7 X10e3 (4.0-10.5)
[2016-11-13 08:42] LABS: HIV1 LOG COPIES/ML <1.30 (<1.30); HIV1COPIES/ML <20 (<20)
[2016-11-13 10:55] LABS: MAGNESIUM 1.9 mg/dL (1.6-3.0); POTASSIUM 3.3 mmol/L (3.5-5.1)
[2016-11-13 12:53] LABS: ARTERIAL BLD GAS O2 SATURATION 93.5 % (90.0-100.0); ARTERIAL BLOOD GAS CARBOXY HB 1.6 %sat (0.0-9.0); ARTERIAL BLOOD GAS HCO3 26.5 mmol/L; ARTERIAL BLOOD GAS MET HB 0.8 %sat (0.0-2.0); ARTERIAL BLOOD GAS PCO2 42.7 mmHg (35.0-45.0); ARTERIAL BLOOD GAS pH 7.402 (7.350-7.450)
[2016-11-13 12:54] LABS: ARTERIAL BLOOD GAS ALLEN TEST NORMAL; ARTERIAL BLOOD GAS ART SITE LEFT RADIAL; ARTERIAL BLOOD GAS DELIVERY NON REBREATHER MASK; ARTERIAL BLOOD GAS PO2 75.2 mmHg (80.0-100); ARTERIAL DRAW? YES
[2016-11-13 13:10] LABS: INR 1.1; PROTHROMBIN TIME (PATIENT) 11.4 SECONDS (9.6-11.5)
[2016-11-13 13:16] LABS: CK TOTAL 31 IU/L (36-174)
[2016-11-13 18:15] LABS: BODY FLUID APPEARANCE CLOUDY; BODY FLUID SOURCE BRONCHIAL LAVAGE
[2016-11-13 19:19] LABS: ARTERIAL BLOOD GAS CARBOXY HB 0.4 %sat (0.0-9.0); ARTERIAL BLOOD GAS HCO3 25.4 mmol/L; ARTERIAL BLOOD GAS MET HB 0.8 %sat (0.0-2.0); ARTERIAL BLOOD GAS PCO2 38.7 mmHg (35.0-45.0); ARTERIAL BLOOD GAS pH 7.426 (7.350-7.450)
[2016-11-13 19:22] LABS: ARTERIAL BLOOD GAS ALLEN TEST NORMAL; ARTERIAL BLOOD GAS ART SITE LEFT BRACHIAL; ARTERIAL BLOOD GAS DELIVERY VENT; ARTERIAL BLOOD GAS VENT MODE AC; ARTERIAL DRAW? YES
[2016-11-14 01:02] LABS: HA AB IGM (HEPPAN) Nonreactive (()); HB CORE AB IGM (HEPPAN) Nonreactive (Nonreactive); HB S AG (HEPPAN) Nonreactive (Nonreactive); HEP C AB (HEPPAN) Nonreactive (Nonreactive); HEP C AB SIGNAL TO CUTOFF 0.09 ratio (<1.00)
[2016-11-14 04:39] LABS: ARTERIAL BLOOD GAS CARBOXY HB 0.5 %sat (0.0-9.0); ARTERIAL BLOOD GAS HCO3 25.6 mmol/L; ARTERIAL BLOOD GAS PCO2 34.2 mmHg (35.0-45.0); ARTERIAL BLOOD GAS pH 7.482 (7.350-7.450)
[2016-11-14 05:06] LABS: ARTERIAL BLOOD GAS ALLEN TEST NORMAL; ARTERIAL BLOOD GAS ART SITE LEFT RADIAL; ARTERIAL BLOOD GAS DELIVERY VENT; ARTERIAL BLOOD GAS VENT MODE AC; ARTERIAL DRAW? YES
[2016-11-14 05:16] LABS: BASOPHIL% 0.2 % (0-2.5); EOSINOPHIL% 0.1 % (0.0-7.0); HEMATOCRIT 31.5 % (38.0-50.0); LYMPHOCYTE# 0.8 X10e3 (1.0-3.5); MEAN CELL VOLUME 86.4 FL (83-96); MEAN CORPUSCULAR HEMOGLOBIN 28.7 PG (28-34); MEAN CORPUSCULAR HGB CONC 33.3 g/dL (30-36); MEAN PLATELET VOLUME 6.7 FL (6.5-11.5); MONOCYTE# 0.1 X10e3 (0-1.0); MONOCYTE% 0.9 % (3.0-12.0); NEUTROPHIL# 10.2 X10e3 (1.5-7.1); NEUTROPHIL% 91.8 % (40-75); PLATELET COUNT 197 X10e3 (140-420); RED BLOOD COUNT 3.64 X10e (3.90-5.60); RED CELL DISTRIBUTION WIDTH 13.6 % (11.0-15.5); WHITE BLOOD COUNT 11.1 X10e3 (4.0-10.5)
[2016-11-14 05:18] LABS: DIFF IND NO; HEMOGLOBIN 10.5 gm/dL (13.0-16.0)
[2016-11-14 06:22] LABS: ALBUMIN SERUM 1.4 g/dL (3.5-5.0); BILIRUBIN,TOTAL 0.6 mg/dL (0.2-2.0); BUN/CREATININE RATIO 15.71; CALCIUM SERUM 7.4 mg/dL (8.4-10.2); CREATININE SERUM 0.7 mg/dL (0.6-1.4); GLOM FILT RATE Estimated 113.2 mL/min (>60); PHOSPHOROUS 3.7 mg/dL (2.5-4.6); PROTEIN TOTAL SERUM 4.6 g/dL (6.0-8.3)
[2016-11-15 04:45] LABS: ARTERIAL BLD GAS O2 SATURATION 98.8 % (90.0-100.0); ARTERIAL BLOOD GAS CARBOXY HB 0.4 %sat (0.0-9.0); ARTERIAL BLOOD GAS HCO3 25.2 mmol/L; ARTERIAL BLOOD GAS MET HB 0.6 %sat (0.0-2.0); ARTERIAL BLOOD GAS PCO2 33.2 mmHg (35.0-45.0); ARTERIAL BLOOD GAS pH 7.489 (7.350-7.450)
[2016-11-15 05:19] LABS: ARTERIAL BLOOD GAS ALLEN TEST NORMAL; ARTERIAL BLOOD GAS ART SITE LEFT BRACHIAL; ARTERIAL BLOOD GAS DELIVERY VENT; ARTERIAL BLOOD GAS VENT MODE AC; ARTERIAL DRAW? YES
[2016-11-15 05:32] LABS: BASOPHIL% 0.2 % (0-2.5); HEMATOCRIT 31.1 % (38.0-50.0); HEMOGLOBIN 10.4 gm/dL (13.0-16.0); LYMPHOCYTE# 1.3 X10e3 (1.0-3.5); LYMPHOCYTE% 11.5 % (17.0-45.0); MEAN CELL VOLUME 86.7 FL (83-96); MEAN CORPUSCULAR HGB CONC 33.4 g/dL (30-36); MEAN PLATELET VOLUME 7.3 FL (6.5-11.5); MONOCYTE# 0.3 X10e3 (0-1.0); NEUTROPHIL# 9.7 X10e3 (1.5-7.1); NEUTROPHIL% 85.3 % (40-75); PLATELET COUNT 205 X10e3 (140-420); RED BLOOD COUNT 3.59 X10e (3.90-5.60); WHITE BLOOD COUNT 11.3 X10e3 (4.0-10.5)
[2016-11-15 05:59] LABS: DIFF IND NO
[2016-11-15 06:04] LABS: BUN/CREATININE RATIO 34.28; CALCIUM SERUM 7.6 mg/dL (8.4-10.2); CREATININE SERUM 0.7 mg/dL (0.6-1.4); GLOM FILT RATE Estimated 113.2 mL/min (>60); POTASSIUM 4.1 mmol/L (3.5-5.1)
[2016-11-16 05:51] LABS: BASOPHIL% 0.1 % (0-2.5); HEMATOCRIT 27.6 % (38.0-50.0); HEMOGLOBIN 9.2 gm/dL (13.0-16.0); LYMPHOCYTE# 0.5 X10e3 (1.0-3.5); MEAN CELL VOLUME 87.3 FL (83-96); MEAN CORPUSCULAR HEMOGLOBIN 29.2 PG (28-34); MEAN CORPUSCULAR HGB CONC 33.4 g/dL (30-36); MEAN PLATELET VOLUME 6.9 FL (6.5-11.5); MONOCYTE# 0.3 X10e3 (0-1.0); MONOCYTE% 1.5 % (3.0-12.0); NEUTROPHIL# 16.4 X10e3 (1.5-7.1); NEUTROPHIL% 95.4 % (40-75); PLATELET COUNT 216 X10e3 (140-420); RED BLOOD COUNT 3.16 X10e (3.90-5.60); RED CELL DISTRIBUTION WIDTH 14.2 % (11.0-15.5)
[2016-11-16 05:54] LABS: DIFF IND YES; WHITE BLOOD COUNT 17.2 X10e3 (4.0-10.5)
[2016-11-16 06:29] LABS: ANISOCYTOSIS SL; PLATELET ESTIMATE NORMAL (NORMAL)
[2016-11-16 07:05] LABS: ALBUMIN SERUM 1.7 g/dL (3.5-5.0); BILIRUBIN,TOTAL 0.4 mg/dL (0.2-2.0); BUN/CREATININE RATIO 36.66; CALCIUM SERUM 7.7 mg/dL (8.4-10.2); CREATININE SERUM 0.9 mg/dL (0.6-1.4); GLOM FILT RATE Estimated 102.1 mL/min (>60); MAGNESIUM 1.9 mg/dL (1.6-3.0); POTASSIUM 3.6 mmol/L (3.5-5.1)
[2016-11-17 08:13] LABS: HEMATOCRIT 29.3 % (38.0-50.0); HEMOGLOBIN 9.4 gm/dL (13.0-16.0); MEAN CELL VOLUME 87.4 FL (83-96); MEAN CORPUSCULAR HEMOGLOBIN 28.1 PG (28-34); MEAN CORPUSCULAR HGB CONC 32.1 g/dL (30-36); RED BLOOD COUNT 3.35 X10e (3.90-5.60); WHITE BLOOD COUNT 13.5 X10e3 (4.0-10.5)
[2016-11-17 08:50] LABS: BUN/CREATININE RATIO 28.57; CALCIUM SERUM 7.7 mg/dL (8.4-10.2); CREATININE SERUM 0.7 mg/dL (0.6-1.4); GLOM FILT RATE Estimated 113.2 mL/min (>60); POTASSIUM 3.9 mmol/L (3.5-5.1)
[2016-11-18 05:37] LABS: HEMATOCRIT 25.5 % (38.0-50.0); HEMOGLOBIN 8.5 gm/dL (13.0-16.0); MEAN CELL VOLUME 87.2 FL (83-96); MEAN CORPUSCULAR HGB CONC 33.2 g/dL (30-36); MEAN PLATELET VOLUME 7.2 FL (6.5-11.5); RED BLOOD COUNT 2.92 X10e (3.90-5.60); RED CELL DISTRIBUTION WIDTH 13.2 % (11.0-15.5); WHITE BLOOD COUNT 16.6 X10e3 (4.0-10.5)
[2016-11-18 06:07] LABS: CALCIUM SERUM 7.7 mg/dL (8.4-10.2); CREATININE SERUM 0.7 mg/dL (0.6-1.4); GLOM FILT RATE Estimated 113.2 mL/min (>60); POTASSIUM 3.6 mmol/L (3.5-5.1)
[2016-11-18 08:00] LABS: ARTERIAL BLD GAS O2 SATURATION 88.4 % (90.0-100.0); ARTERIAL BLOOD GAS CARBOXY HB 1.3 %sat (0.0-9.0); ARTERIAL BLOOD GAS HCO3 25.1 mmol/L; ARTERIAL BLOOD GAS MET HB 0.7 %sat (0.0-2.0); ARTERIAL BLOOD GAS PCO2 37.5 mmHg (35.0-45.0); ARTERIAL BLOOD GAS pH 7.435 (7.350-7.450)
[2016-11-18 08:02] LABS: ARTERIAL BLOOD GAS ALLEN TEST NORMAL; ARTERIAL BLOOD GAS ART SITE LEFT BRACHIAL; ARTERIAL BLOOD GAS DELIVERY NASAL CANNULA; ARTERIAL BLOOD GAS PO2 52.9 mmHg (80.0-100); ARTERIAL DRAW? YES
[2016-11-18 14:05] LABS: ASPERGILLUS FLAVUS Negative (Negative); ASPERGILLUS FUMIGATUS Negative (Negative); ASPERGILLUS NIGER Negative (Negative); BLASTOMYCES ANTIBODY Negative (Negative); COCCIDIODES ANTIBODY Negative (Negative); CRYPTOCOCCAL AB <1:2 (()); CRYPTOCOCCAL AG SCREEN SOURCE Serum (()); CRYPTOCOCCAL SCREEN Not Detected (Not Detected); HISTOPLASMA AB Negative (Negative)
[2016-11-19 06:42] LABS: HEMATOCRIT 27.8 % (38.0-50.0); HEMOGLOBIN 9.3 gm/dL (13.0-16.0); MEAN CELL VOLUME 86.7 FL (83-96); MEAN CORPUSCULAR HEMOGLOBIN 29.1 PG (28-34); MEAN CORPUSCULAR HGB CONC 33.6 g/dL (30-36); MEAN PLATELET VOLUME 7.2 FL (6.5-11.5); RED BLOOD COUNT 3.2 X10e (3.90-5.60); RED CELL DISTRIBUTION WIDTH 13.8 % (11.0-15.5); WHITE BLOOD COUNT 15.4 X10e3 (4.0-10.5)
[2016-11-19 07:01] LABS: BUN/CREATININE RATIO 15.55; CALCIUM SERUM 7.7 mg/dL (8.4-10.2); CREATININE SERUM 0.9 mg/dL (0.6-1.4); GLOM FILT RATE Estimated 102.1 mL/min (>60); MAGNESIUM 1.7 mg/dL (1.6-3.0); POTASSIUM 3.9 mmol/L (3.5-5.1)
[2016-11-20 09:53] LABS: CALCIUM SERUM 7.9 mg/dL (8.4-10.2); CREATININE SERUM 0.6 mg/dL (0.6-1.4); GLOM FILT RATE Estimated 120.6 mL/min (>60); MAGNESIUM 1.8 mg/dL (1.6-3.0); POTASSIUM 3.8 mmol/L (3.5-5.1)
[2016-11-21 07:13] LABS: HEMATOCRIT 26.9 % (38.0-50.0); MEAN CORPUSCULAR HGB CONC 33.3 g/dL (30-36); MEAN PLATELET VOLUME 7.3 FL (6.5-11.5); RED BLOOD COUNT 3.09 X10e (3.90-5.60); RED CELL DISTRIBUTION WIDTH 13.8 % (11.0-15.5); WHITE BLOOD COUNT 10.7 X10e3 (4.0-10.5)
[2016-11-21 07:42] LABS: CALCIUM SERUM 7.8 mg/dL (8.4-10.2); CREATININE SERUM 0.5 mg/dL (0.6-1.4); POTASSIUM 3.9 mmol/L (3.5-5.1)
[2016-11-22 05:25] LABS: HEMOGLOBIN 9.2 gm/dL (13.0-16.0); MEAN CELL VOLUME 87.4 FL (83-96); MEAN CORPUSCULAR HEMOGLOBIN 28.7 PG (28-34); MEAN CORPUSCULAR HGB CONC 32.8 g/dL (30-36); MEAN PLATELET VOLUME 7.2 FL (6.5-11.5); RED BLOOD COUNT 3.21 X10e (3.90-5.60); RED CELL DISTRIBUTION WIDTH 13.9 % (11.0-15.5)
[2016-11-22 05:57] LABS: CALCIUM SERUM 7.6 mg/dL (8.4-10.2); CREATININE SERUM 0.5 mg/dL (0.6-1.4); POTASSIUM 3.9 mmol/L (3.5-5.1)
[2016-12-22] MEDS ORDERED: BAZA ANTIFUNGAL57 GM TOP (14:47)
[2016-12-22] MEDS ORDERED: NICOTINE PATCH1 EACH TD (14:48)
[2016-12-22] MEDS ORDERED: BASAGLAR K100 UNIT/1 (14:48)
[2016-12-22] MEDS ORDERED: VANCOMYCIN SUSP (14:51)
[2016-12-22] MEDS ORDERED: OXYCONTIN40 MG PO (14:52)
[2016-12-22] MEDS ORDERED: INSULIN LISPRO (14:53)
[2016-12-22] MEDS ORDERED: VITAMIN D250000 UNIT PO (14:53)
[2016-12-22] MEDS ORDERED: GABAPENTIN600 MG PO (14:54)
[2016-12-22] MEDS ORDERED: LEVOTHYROXINE100 MC1 PO (14:54)
[2016-12-22] MEDS ORDERED: FERROUS SULFAT325 MG (14:54)
[2016-12-22] MEDS ORDERED: SENNA (14:55)
[2016-12-22] MEDS ORDERED: VITAMIN C1000 M2 PO (14:55)
[2016-12-22] MEDS ORDERED: PAIN RELIEF325 M1 PO (14:56)
[2016-12-22] MEDS ORDERED: OXYCODONE HCL10 MG PO (14:56)
[2016-12-22] MEDS ORDERED: PANTOPRAZOLE SO40 MG PO (14:57)
[2016-12-22] MEDS ORDERED: FLUOXETINE HCL20 M1 PO (14:57)
[2016-12-22] MEDS ORDERED: ATORVASTATIN CA10 MG PO (14:58)
[2016-12-22] MEDS ORDERED: DESYREL100 MG PO (14:58)
[2016-12-22] MEDS ORDERED: FLORASTORKIDS250 MG (14:59)
[2016-12-22] MEDS ORDERED: ZOFRAN PO (14:59)
[2016-12-22] MEDS ORDERED: BISACODYL10 MG (15:01)
[2016-12-22] MEDS ORDERED: GLUCAGEN1 MG IM (15:01)
[2016-12-22] MEDS ORDERED: COMBIVENT RESPIM4 GM INH (15:02)
== END 2016-11-22 19:48 | DRG 239 ==
LOC: CED 18:54 → EDBD 18:54 → CED 20:07 → CEDOF 22:01 → CED 22:01 → CEDOF 22:20 → CICCU3 22:20 → CEDOF 23:22 → C4C 23:22 → CICCU3 11-13 13:24 → C5C 11-16 10:35
PROVIDERS: Emergency Medicine; Family Medicine; Internal Medicine; Internal Medicine Pulmonary Disease; Orthopaedic Surgery
PROC: 0Y6M0Z9 Detachment at Right Foot, Partial 1st Ray, Open Approach (ICD-10-PCS; 2016-11-09)
PROC: 0Y6M0ZB Detachment at Right Foot, Partial 2nd Ray, Open Approach (ICD-10-PCS; 2016-11-09)
PROC: 0Y6M0ZC Detachment at Right Foot, Partial 3rd Ray, Open Approach (ICD-10-PCS; 2016-11-09)
PROC: 0Y6M0ZD Detachment at Right Foot, Partial 4th Ray, Open Approach (ICD-10-PCS; 2016-11-09)
PROC: 0Y6M0ZF Detachment at Right Foot, Partial 5th Ray, Open Approach (ICD-10-PCS; 2016-11-09)
PROC: 5A1945Z Respiratory Ventilation, 24-96 Consecutive Hours (ICD-10-PCS; 2016-11-13)
PROC: 0B9D8ZX Drainage of Right Middle Lung Lobe, Via Natural or Artificial Opening Endoscopic, Diagnostic (ICD-10-PCS; 2016-11-13)
PROC: 0B9F8ZX Drainage of Right Lower Lung Lobe, Via Natural or Artificial Opening Endoscopic, Diagnostic (ICD-10-PCS; 2016-11-13)
PROC: 0BH18EZ Insertion of Endotracheal Airway into Trachea, Via Natural or Artificial Opening Endoscopic (ICD-10-PCS; 2016-11-13)
PROC: 05HM33Z Insertion of Infusion Device into Right Internal Jugular Vein, Percutaneous Approach (ICD-10-PCS; 2016-11-13)
PROC: B543ZZA Ultrasonography of Right Jugular Veins, Guidance (ICD-10-PCS; 2016-11-13)
PROC: B32TYZZ Computerized Tomography (CT Scan) of Left Pulmonary Artery using Other Contrast (ICD-10-PCS; 2016-11-13)
PROC: B32SYZZ Computerized Tomography (CT Scan) of Right Pulmonary Artery using Other Contrast (ICD-10-PCS; 2016-11-13)
PROC: B24BYZZ Ultrasonography of Heart with Aorta using Other Contrast (ICD-10-PCS; 2016-11-13)
PROC: 2W1SX6Z Compression of Right Foot using Pressure Dressing (ICD-10-PCS; 2016-11-21)
PROC: 0JBQ0ZZ Excision of Right Foot Subcutaneous Tissue and Fascia, Open Approach (ICD-10-PCS; principal; 2016-11-21 19:00)
PROC: 02HV33Z Insertion of Infusion Device into Superior Vena Cava, Percutaneous Approach (ICD-10-PCS; 2016-11-22)
PROC: B518YZA Fluoroscopy of Superior Vena Cava using Other Contrast, Guidance (ICD-10-PCS; 2016-11-22)
PROC: B548ZZA Ultrasonography of Superior Vena Cava, Guidance (ICD-10-PCS; 2016-11-22)
DX: E11.52 Type 2 diabetes mellitus with diabetic peripheral angiopathy with gangrene (principal); J69.0 Pneumonitis due to inhalation of food and vomit; J96.01 Acute respiratory failure with hypoxia; R64 Cachexia; F33.2 Major depressive disorder, recurrent severe without psychotic features; E44.0 Moderate protein-calorie malnutrition; J44.1 Chronic obstructive pulmonary disease with (acute) exacerbation; B37.0 Candidal stomatitis; Z68.1 Body mass index [BMI] 19.9 or less, adult; Z79.4 Long term (current) use of insulin; E11.42 Type 2 diabetes mellitus with diabetic polyneuropathy; E78.5 Hyperlipidemia, unspecified; E11.65 Type 2 diabetes mellitus with hyperglycemia; F17.210 Nicotine dependence, cigarettes, uncomplicated; G89.29 Other chronic pain
CPT/HCPCS: 36600; 71010; 71275; 73630; 74000; 76937; 77001; 80048; 80053; 80074; 80076; 80202; 80307; 81003; 82150; 82308; 82550; 82553; 82803; 82947; 83036; 83605; 83690; 83735; 83880; 84100; 84132; 84443; 84484; 85025; 85027; 85610; 85730; 86606; 86612; 86631; 86698; 87040; 87070; 87075; 87102; 87106; 87116; 87205; 87206; 87252; 87254; 87278; 87493; 87536; 87806; 88108; 88305; 88307; 88312; 89051; 93005; 93306; 94002; 94003; 94640; 94760; 94761; 96360; 97110; 97163; 97164; 97530; 99291; C1751; G8978-GP; G8979-GP; J0171; J0696; J1642; J1815; J1940; J1956; J2250; J2270; J2310; J2405; J2543; J2550; J2765; J2920; J2930; J3010; J3370; J3475; Q9967

== ENCOUNTER 2016-12-26 12:07 | Inpatient (IN) | payer MEDICARE ==
--- NOTE | ~2016-12-26 | DS ---
Unit #: [id number] #: [id number] Patient: LOUANN GOLDEN JR [id number] [facility]. [place], [place] [address] [id number] MR#: [id number] NAME: LOUANN GOLDEN JR ROOM: 473 Age: 46 Sex: M Admission Date: 12/26/2016 : 1970 Discharge Date: 12/28/2016 Attending Physician: Jacy Stapleton M.D. Primary Care Physician: No Primary Care Physician DISCHARGE SUMMARY CHIEF COMPLAINT Right foot wound. HISTORY OF PRESENT ILLNESS The patient is a 45-year-old male with uncontrolled diabetes for the past 8 years. He has significant peripheral neuropathy. He was admitted with right foot wet gangrene in early 10/2016, requiring open transmetatarsal amputation. He then underwent partial closure of the wound on 11/21/2016 with application of a wound VAC. He now has a granulating wound in the plantar aspect of his residual midfoot and is to undergo skin grafting. HOSPITAL COUSE The patient was taken to the operating room on 12/26/2016, where he underwent right foot split-thickness skin graft to the plantar foot wound. The donor site was his right anterior thigh. There were no operative complications. He was seen by internal medicine during his postoperative course. Sliding scale insulin was instituted. His hematocrit was 28.3% on the second postoperative day. He was seen by the wound care nurse for a coccygeal wound. He is ready for discharge on 12/28/2016. FINAL DIAGNOSES 1. Poorly controlled insulin dependent diabetes. 2. Malnutrition. 3. Right foot wound. 4. Pressure ulcer of the coccyx. PLAN 1. The patient is discharged back to rehabilitation. He should remain nonweightbearing on his right foot. Keep the dressing clean, dry and intact. The dressing on his right thigh may be reinforced as needed. 2. Wound care should be instituted on the coccyx per recommendations of the wound care nurse at [facility]. DISCHARGE MEDICATIONS 1. Combivent Respimat inhalation spray 1 puff q.4 h. p.r.n. dyspnea. 2. Tylenol 650 mg p.o. q.4 h. p.r.n. pain. 3. Gabapentin 600 mg p.o. q.i.d. 4. Fluoxetine 20 mg p.o. daily. 5. Desyrel 100 mg p.o. at nighttime. 6. Glucagon 1 mg IM p.r.n. blood sugar less than 70. 7. Zofran 4 mg p.o. q.6 h. p.r.n. nausea. 8. Miconazole nitrate cream 57 g applied topically every shift to the sacral wound. 9. Nicotine patch TD24 1 transdermal daily. Unit #: [id number] #: [id number] Patient: LOUANN GOLDEN JR 10. Bisacodyl rectal suppository 1 p.r. p.r.n. constipation. 11. Senokot 2 tablets p.o. daily. 12. Urea 10% 142 g cream applied topically b.i.d. to the arms. 13. Atorvastatin 10 mg p.o. at nighttime. 14. Insulin, Glargine Humulin (Basaglar Quick Pen U100) 20 units subcutaneously daily. 15. Iron sulfate 325 mg daily. 16. Florastor Kids 250 mg p.o. b.i.d. 17. OxyContin 40 mg p.o. b.i.d. 18. Oxycodone 10 mg p.o. q.12 h. p.r.n. breakthrough pain. 19. Pantoprazole 40 mg p.o. daily. 20. Levothyroxine 100 mcg p.o. daily. 21. Vitamin C 1000 mg p.o. daily. 22. Vancomycin suspension 250 mg p.o. q.i.d. until 12/30/2016. 23. Insulin Lispro sliding scale q.i.d. 24. Vitamin D 50,000 units p.o. weekly. FOLLOWUP Follow up in the office with Dr. Stapleton in one week for dressing change. Dictated by..Jhon Jalloh/espinoza TD: 12/28/2016 14:06 JOB #: [id number] CC: Jacy Stapleton M.D. DISCHARGE SUMMARY Page 1 of 1 X Vance Stapleton MD X DISCHARGE SUMMARY
--- NOTE | ~2016-12-26 | EKG ---
PATIENT: LOUANN GOLDEN UNIT #: [id number] Ventricular Rate: 78 BPM Atrial Rate: 78 BPM P-R Interval: 132 ms QRS Duration: 80 ms Q-T Interval: 398 ms QTC Calculation(Bezet): 453 ms P Anderson: 75 degrees Calculated R Anderson: 61 degrees Calculated T Anderson: 80 degrees Diagnosis Line: Normal sinus rhythm Diagnosis Line: Low voltage QRS Diagnosis Line: Borderline ECG Diagnosis Line: When compared with ECG of 13-NOV-2016 12:42, Diagnosis Line: Nonspecific T wave abnormality no longer evident Diagnosis Line: in Inferior leads Diagnosis Line: Nonspecific T wave abnormality no longer evident Diagnosis Line: in Anterolateral leads Diagnosis Line: Confirmed by MAGALI MEEHAN MD ([id number]) on Diagnosis Line: 12/27/2016 10:55:56 AM INTERPRETING : THAO
--- NOTE | ~2016-12-26 | OR ---
Unit #: [id number] #: [id number] Patient: LOUANN GOLDEN [id number] [address] [place], [place] [address] [id number] I MR#: [id number] NAME: LOUANN GOLDEN ROOM: 473 Date of Procedure: 12/26/2016 Admission Date: 12/26/2016 Surgeon: Jacy Stapleton M.D. : 1970 Attending Physician: Jacy Stapleton M.D. Primary Care Physician: Primary Care Physician No OPERATIVE REPORT PREOPERATIVE DIAGNOSIS Right plantar foot wound measuring 6 x 9 cm. POSTOPERATIVE DIAGNOSIS Right plantar foot wound measuring 6 x 9 cm. PROCEDURES PERFORMED 1. Right foot split thickness skin graft (54 cm2) (11061). 2. Right percutaneous Achilles tendon lengthening (51278). ASSISTANTS MD Ayo and CLAUDIO Huff. ANESTHESIA General. INDICATIONS FOR SURGERY The patient is a 46-year-old opioid dependent, poorly controlled insulin-dependent diabetic, who underwent open right foot transmetatarsal amputation two months ago. He then underwent partial wound closure five weeks ago with application of wound VAC and eventually was transitioned to wet-to-dry dressing changes. His wound now measures 6 x 9 cm in the plantar aspect of his foot. He is to undergo split thickness graft of his residual plantar midfoot. The skin on his heel was completely intact. He is also to undergo percutaneous Achilles tendon lengthening to increase ankle dorsiflexion and decrease pressure on the forefoot to avert pressure ulcers in the future. DESCRIPTION OF PROCEDURE The patient was taken to the operating room and placed in supine position and general anesthetic was induced. The right leg was identified as the correct operative extremity during the time-out procedure. The IV antibiotic protocol was followed. The right leg was then prepped and draped in the usual sterile fashion. The leg was not exsanguinated and a tourniquet was not utilized. His plantar foot wound was sharply debrided removing all appearing tissue around the skin edges. The overlying granulation tissue was gently scraped to stimulate bleeding. The dermatome was then used to harvest a 15 one thousandth of an inch skin graft from his anterior thigh. This was placed through the mesher and Unit #: [id number] #: [id number] Patient: CHANTEL,LOUANN then placed on the plantar aspect of the foot and stapled into place. A #11 knife blade was then used to perform a percutaneous Achilles tendon lengthening. The medial half of the Achilles tendon was severed 2.5 cm proximal to the insertion. A second lateral hemisection was performed 2.5 cm proximal to the first hemisection. A third medial hemisection was performed 2.5 cm proximal to the second hemisection. The heel was then pulled distally until 10 degrees of ankle dorsiflexion was easily obtained. The stab incisions were closed with Steri-Strips. Xeroform gauze was placed over the skin graft site. Mineral oil soaked cotton balls were then placed over the Xeroform. Fluff, bandages, and a Kerlix was then applied. Cast padding was then applied with extra thicknesses applied to the posterior heel. A posterior fiberglass splint was then applied holding the ankle in neutral dorsiflexion. The thigh donor site was first dressed with epinephrine-soaked gauze. This was then removed and then Tegaderm was then applied. The patient was then awakened in the operating room and transported to the recovery room in stable condition. ESTIMATED BLOOD LOSS Minimal. COMPLICATIONS None. SPECIMENS None. TOURNIQUET TIME Zero. Dictated by.Jhon Kent/ricky TD: 12/26/2016 17:55 JOB #: [id number] OPERATIVE REPORT Page 1 of 1 X Vance Stapleton MD X PROCEDURE OPERATIVE NOTE
--- NOTE | ~2016-12-26 | HP ---
Unit #: [id number] #: [id number] Patient: LOUANN GOLDEN [id number] [address] [address] [id number] I MR#: [id number] NAME: LOUANN GOLDEN ROOM: 473 Age: Sex: M Admission Date: 12/26/2016 : 1970 Attending Physician: Jacy Stapleton M.D. Primary Care Physician: Primary Care Physician No HISTORY AND PHYSICAL CHIEF COMPLAINT Right foot wound. HISTORY OF PRESENT ILLNESS The patient is a 45-year-old male with essentially uncontrolled diabetes for the past eight years. He has significant peripheral neuropathy. He is supposed to be taking insulin. He was admitted with right foot wet gangrene seven weeks ago. He underwent open amputation of his right foot by me on November 09, 2016. The transmetatarsal amputation was left open. He then underwent partial closure of the wound on 11/21/2016 with application of a wound vac. His wound measured 5.5 cm x 8 cm. The patient then continued to have wet to dry dressing changes on the right foot and now has an 8 cm x 8 cm wound which will undergo split thickness skin grafting. PAST MEDICAL HISTORY Remarkable for: 1. Insulin dependent diabetes. 2. Malnutrition. 3. Severe bilateral leg edema. 4. Depression. 5. Hypothyroidism. 6. Hyperlipidemia. 7. History of narcotic abuse. 8. Tobacco abuse. HOME MEDICATIONS 1. Insulin. 2. Suboxone. ALLERGIES None. PAST SURGICAL HISTORY Right foot surgery as noted above. SOCIAL HISTORY The patient is a current everyday smoker. He has a history of narcotics abuse. He formerly lived with his sister, now lives in a skilled nursing. REVIEW OF SYSTEMS Otherwise unremarkable. PHYSICAL EXAMINATION Unit #: [id number] #: [id number] Patient: LOUANN GOLDEN VITAL SIGNS: Height approximately 6 foot tall, weight approximately 140 pounds. GENERAL: This is a cachectic appearing middle aged male who appears much older than his stated age. PHARYNX: Clear. NECK: Supple. HEART: Regular sinus rhythm without murmurs. LUNGS: Clear. ABDOMEN: Soft and nontender. Evaluation of the right foot shows a transmetatarsal amputation with an 8 cm x 8 cm area of non-healing in the plantar forefoot. The skin of the heel is intact. There is no evidence of purulent drainage, warmth or erythema. The patient does have 3+ pitting edema bilaterally. ADMITTING DIAGNOSIS Right plantar foot wound. PLAN The patient will undergo split thickness skin grafting to the right plantar foot from his thigh. He will also undergo Achilles tendon lengthening percutaneously. This procedure was described along with risks of bleeding, infection, nerve damage, need for further surgery in the future, prolonged recovery time, deep venous thrombosis, pulmonary embolism, anesthetic complications. The patient understands above risks. He understands that he is extreme high risk for below the knee amputation with continued smoking. Dictated by Jacy Stapleton M.D. JEANNA/chela TD: 12/25/2016 08:18 JOB #: [id number] HISTORY AND PHYSICAL Page 1 of 1 X Vance Stapleton MD X HISTORY AND PHYSICAL
--- NOTE | ~2016-12-26 | CO ---
Unit #: [id number] #: [id number] Patient: LOUANN GOLDEN [id number] [address] [address] [id number] MR#: [id number] NAME: LOUANN GOLDEN ROOM: [facility] Age: 46 Sex: M Admission Date: 12/26/2016 : 1970 Attending Physician: Jacy Stapleton M.D. Primary Care Physician: No Primary Care Physician Requesting Physician: Jacy Stapleton M.D. Consultation Date: 12/27/2016 CONSULTATION REPORT REASON FOR CONSULT Diabetic management. HISTORY This 46-year-old male with IDDM and associated peripheral neuropathy, was admitted to the orthopedic service yesterday for further right foot surgery. 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 Was discharged to [facility] for wound care and physical therapy. While at [facility], he developed delayed healing of the wound and a new pressure sore right heel. Therefore, he was admitted to Dr. Stapleton yesterday for a right foot split thickness skin graft along with right Achilles tendon lengthening. His perioperative vital signs were stable. Estimated blood loss 5 mL. Except for expected pain and some mild nausea, he denies any problems at present. At [facility], he receives long acting insulin, basaglar 20 units subcu daily, and sliding scale NovoLog. Current Accu-Chek is 190. As an aside, the patient is being treated for C. difficile colitis with p.o. vancomycin with improvement of his diarrhea. PAST MEDICAL HISTORY 1. 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 Stapleton. The patient is receiving wound care at [facility]. During that hospitalization, he developed aspiration pneumonia and was also treated for thrush. 2. Insulin dependent diabetes mellitus with peripheral neuropathy x8 years. 3. Major depressive disorder. 4. Previous opiate dependence. 5. Hypothyroidism. 6. Hyperlipidemia. 7. COPD. 8. C. difficile colitis. 9. Transmetatarsal amputation, right foot. ALLERGIES No known drug allergies. MEDICATIONS Medications from [facility]: 1. Skin care lotions. 2. Basaglar 20 units subcu daily. 3. NicoDerm patch 21 mg per day. 4. Vancomycin suspension 250 mg q.i.d. until 12/30/2016. 5. OxyContin ER 40 mg b.i.d. Unit #: [id number] #: [id number] Patient: LOUANN GOLDEN 6. Sliding scale NovoLog 3 units for Accu-Chek of 100 to 150 and then 2 units for every 50 greater than 150. 7. Vitamin D2 50,000 units each week. 8. Synthroid 0.1 mg daily. 9. Neurontin 600 mg q.i.d. 10. Iron sulfate 325 mg daily. 11. Senokot two tablets daily. 12. Vitamin C 1000 mcg daily. 13. Oxycodone 10 mg b.i.d. p.r.n. breakthrough pain. 14. P.r.n. Tylenol. 15. Prozac 20 mg daily. 16. Protonix 40 mg daily. 17. Lipitor 10 mg daily. 18. Trazodone 100 mg q. h.s. 19. Zofran 4 mg q.6 hours as needed. 20. Florastor 250 mg b.i.d. 21. Duo-Nebs q.i.d. 22. P.r.n. Dulcolax suppository. FAMILY HISTORY Negative for diabetes mellitus. SOCIAL HISTORY The patient was previously smoking one and a half packs per day of tobacco but stopped smoking in October. Does not drink alcohol. Currently is receiving care at [facility]. REVIEW OF SYSTEMS Notable for diabetes, neuropathy, C. difficile colitis, depression, COPD, hypothyroidism, immobilization syndrome following surgery, right foot pain and nausea. All other systems were reviewed and are otherwise negative. PHYSICAL EXAMINATION GENERAL APPEARANCE: Pleasant 46-year-old male, currently in no acute distress. VITAL SIGNS: Temperature 98.3, pulse 76, respirations 18, blood pressure 137/87. HEENT: Eyes PERRLA. Extraocular muscles are intact. Pharynx is benign. NECK: Supple without adenopathy or thyromegaly. CHEST: Clear. CARDIAC: Normal S1 and S2 without S3, S4 or murmur. ABDOMEN: Bowel sounds are present. Mild lower abdominal tenderness without rebound or guarding. No hepatosplenomegaly or masses. EXTREMITIES: Left foot without edema. Pedal pulses present. Right foot with dressings and splint in place. NEUROLOGIC: The patient is awake, alert, oriented. His cranial nerves are intact. He has equal strength throughout but is generally weak on exam. DIAGNOSTIC STUDIES LABORATORY: Labs at noon yesterday - glucose 199. Labs this morning - glucose 207, sodium 134, hematocrit this morning 28.3 down from 33 yesterday. Normal white count and platelet count. ASSESSMENT 1. Status post right foot split thickness skin graft and right Achilles tendon lengthening for delayed healing and new pressure ulcer right heel following a transmetatarsal amputation in October. Unit #: [id number] #: [id number] Patient: LOUANN GOLDEN 2. Adult onset diabetes mellitus with peripheral neuropathy. 3. C. difficile colitis, improving on p.o. vancomycin. 4. Hypothyroidism. 5. Depression. 6. Chronic obstructive pulmonary disease. PLANS 1. Continue long acting insulin and add lower dose sliding scale for now. 2. Will follow with you. Thank you very much for this consult. Dictated by... Katih Nicholas M.D. AML/df TD: 12/27/2016 06:51 JOB #: [id number] CONSULTATION REPORT Page 1 of 1 X Kathi Nicholas MD X CONSULTATION REPORT
[~2016-12-26 12:07] MED LIST: ATORVASTATIN CA10 MG PO; BASAGLAR K100 UNIT/1; BAZA ANTIFUNGAL57 GM TOP; BISACODYL10 MG; COMBIVENT RESPIM4 GM INH; DESYREL100 MG PO; EFFEXOR75 M3 PO; FERROUS SULFAT325 MG; FLORASTORKIDS250 MG; FLUOXETINE HCL20 M1 PO; GABAPENTIN400 MG PO; GABAPENTIN600 MG PO; GLUCAGEN1 MG IM; INSULIN LISPRO; LEVOTHYROXINE100 MC1 PO; LEVOTHYROXINE75 MCG PO; LOVASTATIN20 MG PO; NICOTINE PATCH1 EACH TD; NOVOLOG7030 SUBQ; OXYCODONE HCL10 MG PO; OXYCONTIN40 MG PO; PAIN RELIEF325 M1 PO; PANTOPRAZOLE SO40 MG PO; SENNA; VANCOMYCIN SUSP; VITAMIN C1000 M2 PO; VITAMIN D250000 UNIT PO; ZOFRAN PO
[2016-12-26 13:24] LABS: BASOPHIL# 0.1 X10e3 (0-0.3); BASOPHIL% 1.1 % (0-2.5); EOSINOPHIL# 0.1 X10e3 (0-0.7); EOSINOPHIL% 1.1 % (0.0-7.0); HEMOGLOBIN 10.5 gm/dL (13.0-16.0); LYMPHOCYTE# 1.2 X10e3 (1.0-3.5); LYMPHOCYTE% 13.7 % (17.0-45.0); MEAN CELL VOLUME 85.1 FL (83-96); MEAN CORPUSCULAR HEMOGLOBIN 27.1 PG (28-34); MEAN CORPUSCULAR HGB CONC 31.8 g/dL (30-36); MEAN PLATELET VOLUME 6.3 FL (6.5-11.5); MONOCYTE# 0.4 X10e3 (0-1.0); MONOCYTE% 4.4 % (3.0-12.0); NEUTROPHIL# 6.9 X10e3 (1.5-7.1); NEUTROPHIL% 79.7 % (40-75); PLATELET COUNT 322 X10e3 (140-420); RED BLOOD COUNT 3.88 X10e (3.90-5.60); RED CELL DISTRIBUTION WIDTH 15.9 % (11.0-15.5); WHITE BLOOD COUNT 8.6 X10e3 (4.0-10.5)
[2016-12-26 13:25] LABS: DIFF IND NO
[2016-12-26 13:53] LABS: BUN/CREATININE RATIO 13.75; CREATININE SERUM 0.8 mg/dL (0.6-1.4); GLOM FILT RATE Estimated 107.2 mL/min (>60); POTASSIUM 4.3 mmol/L (3.5-5.1)
[2016-12-27 04:21] LABS: HEMATOCRIT 28.3 % (38.0-50.0); HEMOGLOBIN 9.3 gm/dL (13.0-16.0)
[2016-12-27 04:39] LABS: CALCIUM SERUM 7.4 mg/dL (8.4-10.2); CREATININE SERUM 0.8 mg/dL (0.6-1.4); GLOM FILT RATE Estimated 107.2 mL/min (>60); POTASSIUM 3.8 mmol/L (3.5-5.1)
[2016-12-27 19:03] LABS: URINE APPEARANCE CLEAR; URINE BILIRUBIN NEG (NEG); URINE BLOOD TRACE (NEG); URINE COLOR YELLOW; URINE GLUCOSE NEG (NEG); URINE KETONE NEG (NEG); URINE LEUKOCYTE ESTERASE 2+ (NEG); URINE NITRATE NEG (NEG); URINE PH 5.5 (5-8); URINE PROTEIN 1+ (NEG); URINE SPECIFIC GRAVITY 1.014 (1.003-1.035); URINE UROBILINOGEN 0.2 MG/DL (NEG)
[2016-12-27 19:04] LABS: URINE BACTERIA AUWI NEG (NEGATIVE); URINE SQUAMOUS EPITHELIAL CELL NONE SEEN /[HPF]; UWBCS1 AUWI 50-100 (0-5)
[2016-12-27 19:15] LABS: URINE YEAST PRESENT
[2016-12-28 03:23] LABS: HEMATOCRIT 28.1 % (38.0-50.0); HEMOGLOBIN 9.1 gm/dL (13.0-16.0); MEAN CELL VOLUME 84.7 FL (83-96); MEAN CORPUSCULAR HEMOGLOBIN 27.5 PG (28-34); MEAN CORPUSCULAR HGB CONC 32.4 g/dL (30-36); MEAN PLATELET VOLUME 6.2 FL (6.5-11.5); RED BLOOD COUNT 3.32 X10e (3.90-5.60); WHITE BLOOD COUNT 9.4 X10e3 (4.0-10.5)
[2016-12-28 03:52] LABS: BUN/CREATININE RATIO 15.71; CALCIUM SERUM 7.4 mg/dL (8.4-10.2); CREATININE SERUM 0.7 mg/dL (0.6-1.4); GLOM FILT RATE Estimated 113.2 mL/min (>60); MAGNESIUM 1.8 mg/dL (1.6-3.0); POTASSIUM 4.1 mmol/L (3.5-5.1)
[2016-12-28 04:24] LABS: THYROID STIMULATING HORMONE 26.91 uIU/ml (0.34-5.60)
[2016-12-28 04:31] LABS: FREE THYROXIN (T4) 0.72 ng/dL (0.58-1.64)
== END 2016-12-28 17:25 | DRG 574 ==
LOC: CSUR 12:07 → CPACUOF 13:31 → C4C 13:31 → CSUR 13:31 → C4C 17:00 → CPACUOF 17:00 → C4C 19:50
PROVIDERS: Nurse Practitioner; Orthopaedic Surgery
PROC: 0L8N0ZZ Division of Right Lower Leg Tendon, Open Approach (ICD-10-PCS; 2016-12-26)
PROC: 0HRMX74 Replacement of Right Foot Skin with Autologous Tissue Substitute, Partial Thickness, External Approach (ICD-10-PCS; principal; 2016-12-26 15:00)
PROC: 0HBHXZZ Excision of Right Upper Leg Skin, External Approach (ICD-10-PCS; 2016-12-26 15:00)
DX: L89.619 Pressure ulcer of right heel, unspecified stage (principal); A04.7 Enterocolitis due to Clostridium difficile; E46 Unspecified protein-calorie malnutrition; E11.42 Type 2 diabetes mellitus with diabetic polyneuropathy; Z79.4 Long term (current) use of insulin; F32.9 Major depressive disorder, single episode, unspecified; E03.9 Hypothyroidism, unspecified; E78.5 Hyperlipidemia, unspecified; F17.210 Nicotine dependence, cigarettes, uncomplicated; D64.89 Other specified anemias; K21.9 Gastro-esophageal reflux disease without esophagitis; J44.9 Chronic obstructive pulmonary disease, unspecified; Z68.24 Body mass index [BMI] 24.0-24.9, adult
CPT/HCPCS: 80048; 81003; 82947; 83735; 84439; 84443; 85014; 85018; 85025; 85027; 86850; 86900; 86901; 86923; 87086; 87088; 87186; 93005; 94640; 94760; 97163; 97530; G8978-GP; G8979-GP; J0171; J1815; J2250; J2270; J2405; J3010